=== PATIENT | female | born 1960 | race Caucasian/White ===

== ENCOUNTER → 2017-02-10 | Outpatient (CLI) | payer OTHER ==
--- NOTE | 2017-02-10 16:19 | MR ---
EXAMINATION TYPE: MR brain wo/w con DATE OF EXAM: 02/10/2017 4:05 PM COMPARISON: MRI brain April 28, 2016. HISTORY: Brain tumor and TIA per order. Patient having dizziness and forgetfulness symptoms. TECHNIQUE: Multiplanar, multisequence images of the brain and brainstem is performed without and with IV contras t, utilizing 15 mL intravenous MultiHance . FINDINGS: Diffusion weighted images demonstrate no evidence of a recent infarct or other diffusion ab normality. There is no worrisome extra-axial fluid collection. The ventricular system and cisternal spaces are normal in size and appearance. The brain volume is age appropriate. There is redemonstra tion a few scattered foci T2 hyperintensity seen throughout the white matter bilaterally. Approximate ly 5-10 small lesions all measuring 5 mm or smaller in size are redemonstrated. Lesions are nonspecif ic in appearance and distribution but most likely on basis of product of chronic small vessel ischemi c change. No significant change or progression from prior study is seen. Midline structures demonstrate normal morphology. The craniocervical junction appears within normal limits. Post contrast images demonstrate no abnormal enhancement. The dural venous sinuses appear pa tent. Mild mucosal thickening involving inferior maxillary sinuses is redemonstrated bilaterally othe rwise paranasal sinuses are grossly clear. The globes are intact bilaterally.. IMPRESSION: Stable mild chronic small vessel ischemic change. No significant change from prior study. No new enhancing intraparenchymal mass is noted to suggest intracranial neoplasm.
== END | disposition home or self-care (01) ==
LOC: RADMRIMAIN 15:12
PROVIDERS: ATTEND Psychiatry & Neurology Neurology
DX: C71.9 Malignant neoplasm of brain, unspecified (principal); I67.82 Cerebral ischemia
CPT/HCPCS: 70553; A9577

== ENCOUNTER → 2017-10-04 | Outpatient (CLI) | payer BC ==
--- NOTE | 2017-10-04 11:24 | BD ---
EXAMINATION TYPE: MG DEXA axial skeleton. DATE OF EXAM: 10/04/2017 COMPARISON: none CLINICAL HISTORY: menopausal Height: 5'4 1/2 Weight: FRAX RISK QUESTIONS: Alcohol (3 or more units per day): no Family History (Parent hip fracture): no Glucocorticoids (More than 3mos): no (Ex: prednisone, prednisolone, methylprednisolone, dexamethasone, and hydrocortisone). History of Fracture in Adulthood: yes Secondary Osteoporosis: 1. Type 1 Diabetes: no 2. Hyperthyroidism: no 3. Menopause before 45: no 4. Malnutrition: no 5. Chronic liver disease: no Rheumatoid Arthritis: no Current Tobacco Use: no RISK FACTORS HISTORY OF: Diet low in dairy products/other sources of calcium: Postmenopausal woman: MEDICATIONS: Thyroid Medications: Which medication: Levothyroxine How Lon years Additional Medications: Additional History: EXAM MEASUREMENTS: Bone mineral densitometry was performed using the [employer] System. Bone mineral density as measured about the Lumbar spine is: ----- L1-L4(G/cm2): 1.185 T Score Values are as follows: ----- L2: -0.2 ----- L3: 0.4 ----- L4: -0.1 ----- L1-L4: 0.0 Bone mineral density about the R hip (g/cm2): 0.983 Bone mineral density about the L hip (g/cm2): 0.933 T Score values are as follows: -----R Neck: -0.4 -----L Neck: -0.8 -----R Total: -0.3 -----L Total: -0.5 IMPRESSION: Normal (Values between +1 and -1 indicate normal bone mass). Consider repeating this study in 5 year s or sooner if there is some new clinical indication. NOTE: T-SCORE=SD OF THE YOUNG ADULT MEAN.
--- NOTE | 2017-10-06 10:47 | MM ---
Reason for exam: screening (asymptomatic). Last mammogram was performed 1 year and 7 months ago. History: Patient is postmenopausal. Benign right US cyst aspiration ea add of the right breast, June 28, 2005. Benign right US cyst aspiration of the right breast, June 28, 2005. Benign cyst aspiration of the left breast, October 18, 2000. Cyst aspiration of the left breast. Cyst aspiration of the right breast. Took hormonal contraceptives for 5 years beginning at age 18. Physical Findings: A clinical breast exam by your physician is recommended on an annual basis and results should be correlated with mammographic findings. MG Screening Mammo w CAD Bilateral CC and MLO view(s) were taken. Prior study comparison: February 23, 2016, bilateral MG screening mammo w CAD. November 15, 2013, bilateral digital screening mammo w/CAD. The breast tissue is heterogeneously dense. This may lower the sensitivity of mammography. No significant changes when compared with prior studies. ASSESSMENT: Negative, BI-RAD 1 RECOMMENDATION: Routine screening mammogram of both breasts in 1 year.
== END | disposition home or self-care (01) ==
LOC: RADMAMWWP 07:45
PROVIDERS: ATTEND Internal Medicine
DX: Z12.31 Encounter for screening mammogram for malignant neoplasm of breast (principal); Z78.0 Asymptomatic menopausal state
CPT/HCPCS: 77080; G0202

== ENCOUNTER 2017-10-05 07:38 | Day surgery (SDC) | payer BC, OTHER ==
[2017-10-04 09:08] VITALS: BMI 26.9
[~2017-10-05 07:38] MED LIST: LACTATED RINGERS 1,000 ML IV SCH; LIDOCAINE 1% 20 ML VIAL (10MG/ML) FOR IV START INTRADERMA PRN
[2017-10-05 08:23] VITALS: RESP 16; TEMP 97.5
[2017-10-05] MEDS ORDERED: LIDOCAINE 1% INJ 10MG/ML (20 ML MDV) ONE (09:24)
[2017-10-05] MEDS ORDERED: PROPOFOL 10 MG/ML 20 ML VIAL IV ONE (09:24)
--- NOTE | 2017-10-05 09:52 | P.PCN ---
Date of Procedure: 10/05/17 Procedure(s) Performed: Procedure: Colonoscopy and polypectomy. Preoperative diagnosis: Screening for neoplasia. Postoperative diagnosis: Distal sigmoid polyp snared but no large polyps or cancer. Preparation: HalfLytely prep. Sedation: Was provided by anesthesia. Brief clinical history: The patient is a 56-year-old female who is referred for this evaluation for screening for neoplasia age being her risk factor. She has no abdominal complaints, bleeding or anemia. No family history of colon cancer. This would be her first colonoscopy. Procedure: With the patient on her left lateral decubitus position and after informed consent and adequate sedation, the perianal area was inspected and it did not show any fissures or fistulas. There were no masses felt on digital rectal examination. The Olympus CFQ 160L video colonoscope was then inserted in the rectum in the usual fashion and advanced to the cecum. There was a 1.5 cm polyp in the distal sigmoid which was snared and retrieved by suction but there were no large polyps or cancer. The mucosa appeared healthy. There was no obvious diverticular disease or other pathology. I retroflexed the endoscope in the rectum before the endoscope was withdrawn. The patient tolerated the procedure well. Plan: The patient was reassured. Will await pathology results. I anticipate repeating this exam in 5 years. She will follow-up with you as planned.
[2017-10-05 10:18] VITALS: BP 127/67; PULSE 62
== END 2017-10-05 10:46 | disposition home or self-care (01) ==
LOC: ORWHC2ENDO 07:38
DX: D12.5 Benign neoplasm of sigmoid colon (principal); Z12.11 Encounter for screening for malignant neoplasm of colon; J45.909 Unspecified asthma, uncomplicated; E07.9 Disorder of thyroid, unspecified; Z85.41 Personal history of malignant neoplasm of cervix uteri; Z88.1 Allergy status to other antibiotic agents; Z79.899 Other long term (current) drug therapy; Z88.5 Allergy status to narcotic agent; Z88.0 Allergy status to penicillin
CPT/HCPCS: 88305; 45385; J2001; J2704

== ENCOUNTER → 2018-10-31 | Outpatient (CLI) | payer BC ==
--- NOTE | 2018-11-01 13:52 | MM ---
Reason for exam: screening (asymptomatic). Last mammogram was performed 1 year and 1 month ago. History: Patient is postmenopausal. Benign right US cyst aspiration ea add of the right breast, June 28, 2005. Benign right US cyst aspiration of the right breast, June 28, 2005. Benign cyst aspiration of the left breast, October 18, 2000. Cyst aspiration of the left breast. Cyst aspiration of the right breast. Took hormonal contraceptives for 5 years beginning at age 18. Physical Findings: A clinical breast exam by your physician is recommended on an annual basis and results should be correlated with mammographic findings. MG Screening Mammo w CAD Bilateral CC and MLO view(s) were taken. Prior study comparison: October 04, 2017, bilateral MG screening mammo w CAD. February 23, 2016, bilateral MG screening mammo w CAD. The breast tissue is heterogeneously dense. This may lower the sensitivity of mammography. Benign appearing bilateral calcifications. No suspicious abnormality. No significant changes when compared with prior studies. ASSESSMENT: Benign, BI-RAD 2 RECOMMENDATION: Routine screening mammogram of both breasts in 1 year.
== END ==
LOC: RADMAMWWP 08:32
PROVIDERS: ATTEND Internal Medicine
DX: Z12.31 Encounter for screening mammogram for malignant neoplasm of breast (principal)
CPT/HCPCS: 77067

== ENCOUNTER → 2020-01-29 | Outpatient (CLI) | payer BC ==
[2020-01-29 12:19] LABS: Basophils # (A) 0.1 k/uL (0-0.2); Basophils % (A) 1 %; Eosinophils # (A) 0.4 k/uL (0-0.7); Eosinophils % (A) 6 %; HCT 45.1 % (34.0-46.0); HGB 14.4 gm/dL (11.4-16.0); Lymphocytes # (A) 2.2 k/uL (1.0-4.8); Lymphocytes % (A) 34 %; MCH 28.9 pg (25.0-35.0); MCHC 31.9 g/dL (31.0-37.0); MCV 90.6 fL (80.0-100.0); Mean Platelet Volume 7.1; Monocytes # (A) 0.4 k/uL (0-1.0); Monocytes % (A) 6 %; Neutrophils # (A) 3.4 k/uL (1.3-7.7); Neutrophils % (A) 52 %; Platelet Count 280 k/uL (150-450); RBC 4.98 m/uL (3.80-5.40); RDW 12.8 % (11.5-15.5); WBC 6.6 k/uL (3.8-10.6)
[2020-01-29 16:12] LABS: Erythrocyte Sedimentation Rate 11 mm/hr (0-20)
== END | disposition home or self-care (01) ==
LOC: LABWHC1 10:15
PROVIDERS: ATTEND Orthopaedic Surgery
DX: T84.84XD Pain due to internal orthopedic prosthetic devices, implants and grafts, subsequent encounter (principal)
CPT/HCPCS: 36415; 85025; 85652; 86140

== ENCOUNTER 2020-03-16 16:18 | Emergency (ER) | payer BC ==
[2020-03-16] MEDS ORDERED: IPRATROPIUM-ALBUTEROL 3 ML NEB INHALATION STA (17:06)
--- NOTE | 2020-03-16 17:10 | ED ---
SOB HPI - General Chief Complaint: Shortness of Breath Stated Complaint: SOB Time Seen by Provider: 03/16/20 16:41 Source: patient, RN notes reviewed Mode of arrival: ambulatory Limitations: no limitations - History of Present Illness Initial Comments: This is a 59-year-old female history of asthma who presents with 3 days of complaints of chest congestion and shortness of breath exertional dyspnea cough is nonproductive sore throat no overt fever chills or sweats however. She believes is her asthma but her home medications are not helping. She was sent in by her doctor today. He does have some anterior chest discomfort it gets increase with deep breathing and movement and pressure. MD Complaint: shortness of breath - Related Data Home Medications Medication Instructions Recorded Confirmed Albuterol Inhaler (Bulk) [Ventolin 1 - 2 puff INHALATION RT-Q6H PRN 09/29/16 10/05/17 Hfa Inhaler] Levothyroxine Sodium [Synthroid] 50 mcg PO DAILY 09/29/16 10/04/17 Previous Rx's Medication Instructions Recorded Azithromycin [Zithromax Z-pack] 250 mg PO DIRECTED #6 tab 03/16/20 methylPREDNISolone Dose Pack 4 mg PO DIRECTED #21 package 03/16/20 [Medrol Dose Pack] Allergies Allergy/AdvReac Type Severity Reaction Status Date / Time codeine AdvReac Nausea & Verified 10/05/17 07:57 Vomiting Penicillins AdvReac Rash/Hives Verified 10/05/17 07:57 tetracycline [Tetracycline] AdvReac INDUCES Verified 10/05/17 07:57 ASTHMA ATTACK tramadol AdvReac sweats Verified 10/05/17 07:57 Review of Systems ROS Statement: Those systems with pertinent positive or pertinent negative responses have been documented in the HPI. ROS Other: All systems not noted in ROS Statement are negative. Past Medical History Past Medical History: Asthma, Cancer, Thyroid Disorder Additional Past Medical History / Comment(s): cancer of cervix History of Any Multi-Drug Resistant Organisms: None Reported Past Surgical History: Joint Replacement Additional Past Surgical History / Comment(s): 10/03/16 total L knee arthroplasty. Other surgical hx: RT TKA, COLONOSCOPY Past Anesthesia/Blood Transfusion Reactions: Previous Problems w/ Anesthesia, Motion Sickness Additional Past Anesthesia/Blood Transfusion Reaction / Comment(s): " SKINS FEELS LIKE IT IS CRAWLING WHEN COMING OUT OF ANESTHESIA" Past Psychological History: No Psychological Hx Reported Smoking Status: Never smoker - Past Family History Brother(s) Family Medical History: Cancer General Exam - General Exam Comments Initial Comments: This is a well-developed well-nourished awake alert oriented 3 female Limitations: no limitations General appearance: alert, in no apparent distress Head exam: Present: atraumatic, normocephalic, normal inspection Eye exam: Present: normal appearance, PERRL, EOMI. Absent: scleral icterus, conjunctival injection, periorbital swelling ENT exam: Present: normal exam, mucous membranes moist, other (No overt hyperemia at this time) Neck exam: Present: normal inspection, full ROM, other (No sided heavy or bruits). Absent: tenderness, meningismus, lymphadenopathy Respiratory exam: Present: normal lung sounds bilaterally, chest wall tenderness (Tennis palpation along the left costal sternal costochondral margin this does reproduce the patient's pain on palpation). Absent: respiratory distress, wheezes, rales, rhonchi, stridor Cardiovascular Exam: Present: regular rate, normal rhythm, normal heart sounds. Absent: systolic murmur, diastolic murmur, rubs, gallop, clicks GI/Abdominal exam: Present: soft, normal bowel sounds. Absent: distended, tenderness, guarding, rebound, rigid Extremities exam: Present: normal inspection, full ROM, normal capillary refill. Absent: tenderness, pedal edema, joint swelling, calf tenderness Back exam: Present: normal inspection Neurological exam: Present: alert, oriented X3, CN II-XII intact Psychiatric exam: Present: normal affect, normal mood Skin exam: Present: warm, dry, intact, normal color. Absent: rash Course Vital Signs 03/16/20 03/16/20 03/16/20 16:22 17:22 17:30 Temperature 97.9 F Pulse Rate 86 88 Respiratory 18 18 18 Rate Blood Pressure 157/87 143/84 O2 Sat by Pulse 98 98 Oximetry 03/16/20 03/16/20 18:00 18:30 Temperature Pulse Rate 74 79 Respiratory 18 18 Rate Blood Pressure 140/86 140/86 O2 Sat by Pulse 99 99 Oximetry - Reevaluation(s) Reevaluation #1: 03/16/20 19:15 Reevaluation patient reveals she is feeling better. Medical Decision Making - Medical Decision Making Patient has negative testing for the Covid virus. The patient presentation consistent with asthma exacerbation with bronchitis she'll be discharged we placed on a course of steroids as well as antibiotics she is able to tolerate Zithromax she has an inhaler this new. She'll follow-up with her doctor return when necessary she is in agreement with this. - Lab Data Result diagrams: 03/16/20 17:20 03/16/20 17:20 Lab Results 03/16/20 03/16/20 03/16/20 Range/Units 17:20 17:20 17:20 WBC 16.0 H (3.8-10.6) k/uL RBC 4.96 (3.80-5.40) m/uL Hgb 14.5 (11.4-16.0) gm/dL Hct 44.8 (34.0-46.0) % MCV 90.4 (80.0-100.0) fL MCH 29.1 (25.0-35.0) pg MCHC 32.2 (31.0-37.0) g/dL RDW 12.7 (11.5-15.5) % Plt Count 337 (150-450) k/uL Neutrophils % 76 % Lymphocytes % 17 % Monocytes % 4 % Eosinophils % 2 % Basophils % 0 % Neutrophils # 12.2 H (1.3-7.7) k/uL Lymphocytes # 2.7 (1.0-4.8) k/uL Monocytes # 0.6 (0-1.0) k/uL Eosinophils # 0.3 (0-0.7) k/uL Basophils # 0.1 (0-0.2) k/uL PT 9.7 (9.0-12.0) sec INR 0.9 (<1.2) APTT 23.8 (22.0-30.0) sec D-Dimer 0.62 H (<0.60) mg/L FEU Sodium (137-145) mmol/L Potassium (3.5-5.1) mmol/L Chloride (98-107) mmol/L Carbon Dioxide (22-30) mmol/L Anion Gap mmol/L BUN (7-17) mg/dL Creatinine (0.52-1.04) mg/dL Est GFR (CKD-EPI)AfAm (>60 ml/min/1.73 sqM) Est GFR (CKD-EPI)NonAf (>60 ml/min/1.73 sqM) Glucose (74-99) mg/dL Plasma Lactic Acid Sundar (0.7-2.0) mmol/L Calcium (8.4-10.2) mg/dL Magnesium (1.6-2.3) mg/dL Total Bilirubin (0.2-1.3) mg/dL AST (14-36) U/L ALT (4-34) U/L Alkaline Phosphatase (38-126) U/L Lactate Dehydrogenase (313-618) U/L Troponin I (0.000-0.034) ng/mL C-Reactive Protein (<10.0) mg/L NT-Pro-B Natriuret Pep 86 pg/mL Total Protein (6.3-8.2) g/dL Albumin (3.5-5.0) g/dL Coronavirus (PCR) (Not Detectd) Influenza Type A RNA (Not Detectd) Influenza Type B (PCR) (Not Detectd) 03/16/20 03/16/20 03/16/20 Range/Units 17:20 17:20 17:20 WBC (3.8-10.6) k/uL RBC (3.80-5.40) m/uL Hgb (11.4-16.0) gm/dL Hct (34.0-46.0) % MCV (80.0-100.0) fL MCH (25.0-35.0) pg MCHC (31.0-37.0) g/dL RDW (11.5-15.5) % Plt Count (150-450) k/uL Neutrophils % % Lymphocytes % % Monocytes % % Eosinophils % % Basophils % % Neutrophils # (1.3-7.7) k/uL Lymphocytes # (1.0-4.8) k/uL Monocytes # (0-1.0) k/uL Eosinophils # (0-0.7) k/uL Basophils # (0-0.2) k/uL PT (9.0-12.0) sec INR (<1.2) APTT (22.0-30.0) sec D-Dimer (<0.60) mg/L FEU Sodium 139 (137-145) mmol/L Potassium 4.1 (3.5-5.1) mmol/L Chloride 104 (98-107) mmol/L Carbon Dioxide 25 (22-30) mmol/L Anion Gap 10 mmol/L BUN 16 (7-17) mg/dL Creatinine 0.66 (0.52-1.04) mg/dL Est GFR (CKD-EPI)AfAm >90 (>60 ml/min/1.73 sqM) Est GFR (CKD-EPI)NonAf >90 (>60 ml/min/1.73 sqM) Glucose 90 (74-99) mg/dL Plasma Lactic Acid Sundar 0.8 (0.7-2.0) mmol/L Calcium 9.7 (8.4-10.2) mg/dL Magnesium 2.1 (1.6-2.3) mg/dL Total Bilirubin 0.4 (0.2-1.3) mg/dL AST 29 (14-36) U/L ALT 21 (4-34) U/L Alkaline Phosphatase 76 (38-126) U/L Lactate Dehydrogenase 471 (313-618) U/L Troponin I (0.000-0.034) ng/mL C-Reactive Protein 21.0 H (<10.0) mg/L NT-Pro-B Natriuret Pep pg/mL Total Protein 7.8 (6.3-8.2) g/dL Albumin 4.5 (3.5-5.0) g/dL Coronavirus (PCR) Not Detected (Not Detectd) Influenza Type A RNA Not Detected (Not Detectd) Influenza Type B (PCR) Not Detected (Not Detectd) 03/16/20 Range/Units 17:20 WBC (3.8-10.6) k/uL RBC (3.80-5.40) m/uL Hgb (11.4-16.0) gm/dL Hct (34.0-46.0) % MCV (80.0-100.0) fL MCH (25.0-35.0) pg MCHC (31.0-37.0) g/dL RDW (11.5-15.5) % Plt Count (150-450) k/uL Neutrophils % % Lymphocytes % % Monocytes % % Eosinophils % % Basophils % % Neutrophils # (1.3-7.7) k/uL Lymphocytes # (1.0-4.8) k/uL Monocytes # (0-1.0) k/uL Eosinophils # (0-0.7) k/uL Basophils # (0-0.2) k/uL PT (9.0-12.0) sec INR (<1.2) APTT (22.0-30.0) sec D-Dimer (<0.60) mg/L FEU Sodium (137-145) mmol/L Potassium (3.5-5.1) mmol/L Chloride (98-107) mmol/L Carbon Dioxide (22-30) mmol/L Anion Gap mmol/L BUN (7-17) mg/dL Creatinine (0.52-1.04) mg/dL Est GFR (CKD-EPI)AfAm (>60 ml/min/1.73 sqM) Est GFR (CKD-EPI)NonAf (>60 ml/min/1.73 sqM) Glucose (74-99) mg/dL Plasma Lactic Acid Sundar (0.7-2.0) mmol/L Calcium (8.4-10.2) mg/dL Magnesium (1.6-2.3) mg/dL Total Bilirubin (0.2-1.3) mg/dL AST (14-36) U/L ALT (4-34) U/L Alkaline Phosphatase (38-126) U/L Lactate Dehydrogenase (313-618) U/L Troponin I <0.012 (0.000-0.034) ng/mL C-Reactive Protein (<10.0) mg/L NT-Pro-B Natriuret Pep pg/mL Total Protein (6.3-8.2) g/dL Albumin (3.5-5.0) g/dL Coronavirus (PCR) (Not Detectd) Influenza Type A RNA (Not Detectd) Influenza Type B (PCR) (Not Detectd) - EKG Data -: EKG Interpreted by Me EKG shows normal: sinus rhythm EKG Comments: Normal sinus rhythm of 80. Interval 150 QRS duration 96 QT since QTC 392/[address]-T wave changes - Radiology Data Radiology results: report reviewed (I did review the imaging and report evidence of COPD no infiltrate seen.), image reviewed Disposition Clinical Impression: Asthma exacerbation, Bronchitis Disposition: HOME SELF-CARE Condition: Good Instructions (If sedation given, give patient instructions): Asthma (ED), Acute Bronchitis (ED) Additional Instructions: Prescriptions sent here for further pharmacy Prescriptions: methylPREDNISolone Dose Pack [Medrol Dose Pack] 4 mg PO DIRECTED #21 package Azithromycin [Zithromax Z-pack] 250 mg PO DIRECTED #6 tab Is patient prescribed a controlled substance at d/c from ED?: No Referrals: Jud Renteria MD [Primary Care Provider] - 1-2 days
[2020-03-16] MEDS ORDERED: ALBUTEROL HFA INHALER INHALATION STA (17:55)
[2020-03-16 18:04] LABS: Basophils # (A) 0.1 k/uL (0-0.2); Basophils % (A) 0 %; Eosinophils # (A) 0.3 k/uL (0-0.7); Eosinophils % (A) 2 %; HCT 44.8 % (34.0-46.0); HGB 14.5 gm/dL (11.4-16.0); Lymphocytes # (A) 2.7 k/uL (1.0-4.8); Lymphocytes % (A) 17 %; MCH 29.1 pg (25.0-35.0); MCHC 32.2 g/dL (31.0-37.0); MCV 90.4 fL (80.0-100.0); Mean Platelet Volume 6.8; Monocytes # (A) 0.6 k/uL (0-1.0); Monocytes % (A) 4 %; Neutrophils # (A) 12.2 k/uL (1.3-7.7); Neutrophils % (A) 76 %; Platelet Count 337 k/uL (150-450); RBC 4.96 m/uL (3.80-5.40); RDW 12.7 % (11.5-15.5)
--- NOTE | 2020-03-16 18:06 | XR ---
EXAMINATION TYPE: XR chest 1V portable DATE OF EXAM: 03/16/2020 Comparison: 08/25/2014 Clinical History: 59-year-old female increasing shortness of breath, cough Suspected COVID-19 pneumon ia Findings: Heart normal size. Aorta and pulmonary vasculature within normal limits. Mild hyperinflation mild int erstitial prominence. No consolidation or pleural effusion. Impression: Possible underlying COPD. Otherwise, no definite acute cardiopulmonary process.
[2020-03-16 18:10] LABS: ALT 21 U/L (4-34); AST 29 U/L (14-36); African American GFR (CKD) >90 (>60 ml/min/1.73 sqM); Albumin 4.5 g/dL (3.5-5.0); Alkaline Phosphatase 76 U/L (38-126); Anion Gap 10 mmol/L; Blood Urea Nitrogen 16 mg/dL (7-17); Calcium 9.7 mg/dL (8.4-10.2); Carbon Dioxide 25 mmol/L (22-30); Chloride 104 mmol/L (98-107); Glucose 90 mg/dL (74-99); LDH 471 U/L (313-618); Magnesium 2.1 mg/dL (1.6-2.3); Non-African American GFR(CKD) >90 (>60 ml/min/1.73 sqM); Potassium 4.1 mmol/L (3.5-5.1); Sodium 139 mmol/L (137-145); Total Bilirubin 0.4 mg/dL (0.2-1.3); Total Protein 7.8 g/dL (6.3-8.2)
[2020-03-16 18:19] LABS: INR 0.9 (<1.2); Partial Thromboplastin Time 23.8 sec (22.0-30.0); Prothrombin Time 9.7 sec (9.0-12.0)
[2020-03-16 18:21] LABS: D-Dimer 0.62 mg/L FEU (<0.60)
[2020-03-16] MEDS ORDERED: predniSONE 50 MG TAB PO STA (19:13)
[2020-03-16] MEDS ORDERED: AZITHROMYCIN 500 MG TAB PO STA (19:14)
[2020-03-16 19:42] VITALS: BP 128/89; PULSE 78; RESP 16; TEMP 97.8
[2020-03-16 23:56] LABS: Ferritin 162.9 ng/mL (10.0-291.0)
== END 2020-03-16 19:42 | disposition home or self-care (01) ==
LOC: EC 16:18
DX: J45.901 Unspecified asthma with (acute) exacerbation (principal); E07.9 Disorder of thyroid, unspecified; Z79.890 Hormone replacement therapy; Z88.0 Allergy status to penicillin; Z88.1 Allergy status to other antibiotic agents; Z88.5 Allergy status to narcotic agent; Z96.653 Presence of artificial knee joint, bilateral
CPT/HCPCS: 36415; 94640; 93005; 85379; 83880; 80053; 82728; 83605; 83615; 83735; 84484; 85025; 85610; 85730; 86140; 87040; 87502; 84145; 87635; 71045; 99285; J7512

== ENCOUNTER → 2020-05-01 | Outpatient (CLI) | payer BC ==
--- NOTE | 2020-05-01 12:50 | NM ---
"EXAMINATION TYPE: NM bone 3 phase DATE OF EXAM: 05/01/2020 COMPARISON: NONE HISTORY: Right knee pain for 5 months. Bilateral knee arthroplasties. Triple phase bone scintigraphy was performed following the injection of 22.2 mCi Tc 99m MDP. Immedia te images and 4 hours post injection images acquired. FINDINGS: There is slightly abnormal asymmetric flow to the right knee in comparison to the left with more focal uptake seen on blood pool images of the medial tibial plateau of the right knee and focal delayed hyperintense uptake at this location. Photopenic defects from bilateral knee arthroplasties. IMPRESSION: Positive 3 phase bone scan of the medial right tibial plateau that can be seen in septic or aseptic loosening. A Lyman level critical message alert has been initiated for Robson Fuentes MD via the [facility] 36 0 | Critical Results System on 05/01/2020 12:48 PM. This message alert has been sent to Robson Fuentes MD via the preferences provided by the clinician for the receipt of Radiology Critical Findings. [facility] ID [id number]."
== END | disposition home or self-care (01) ==
LOC: RADNMMAIN 07:19
PROVIDERS: ATTEND Orthopaedic Surgery
DX: M79.661 Pain in right lower leg (principal); R22.41 Localized swelling, mass and lump, right lower limb; Z88.1 Allergy status to other antibiotic agents; Z88.5 Allergy status to narcotic agent; Z88.6 Allergy status to analgesic agent
CPT/HCPCS: 78315; A9503

== ENCOUNTER → 2020-06-01 | Outpatient (CLI) | payer BC | END | disposition home or self-care (01) | LOC: LABPAT 11:01 | PROVIDERS: ATTEND Orthopaedic Surgery | DX: Z01.812 Encounter for preprocedural laboratory examination (principal) | CPT/HCPCS: 87070 ==

== ENCOUNTER 2020-06-16 09:48 | Inpatient (IN) | payer BC ==
[2020-06-12 14:03] VITALS: BMI 27.1
--- NOTE | 2020-06-15 08:59 | HP ---
HISTORY AND PHYSICAL CHIEF COMPLAINT: Right knee pain. HISTORY OF PRESENT ILLNESS: The patient is a 59-year-old [employer] employed who presents with right knee pain progressing over the past 6 months. She is having pain with weightbearing activities. She has been using a brace. She notes intermittent giving way. She has been taking Naprosyn without much relief. She underwent initial total knee arthroplasty in 2008. PAST MEDICAL HISTORY: Significant for osteoarthritis, hypothyroidism, asthma. PAST SURGICAL HISTORY: Significant for bilateral total knee arthroplasty. CURRENT MEDICATIONS: Levothyroxine, Naprosyn, and Zyrtec. ALLERGIES: She has allergies to PENICILLIN, TETRACYCLINES, CODEINE and TRAMADOL. FAMILY HISTORY: Family history is noncontributory. SOCIAL HISTORY: Negative for current tobacco or alcohol use. REVIEW OF SYSTEMS: Sixteen point review of systems otherwise reviewed and is noncontributory. PHYSICAL EXAMINATION: On examination, the patient is approximately 5 foot 5, 168 pounds of endomorphic habitus. HEENT exam is nonfocal. Neck is supple. She has painless passive motion of the right hip. Straight leg raise is negative. Active motion right knee -8 to 105 degrees of flexion. She is tender about the proximal and medial tibia. She has mild effusion. She has mild varus laxity. Her distal neurovascular exam appears intact in the right lower extremity. IMAGING: X-rays of the right knee obtained in the office show previous total knee arthroplasty with what appears to be some osteolysis about the proximal tibial screws. Bone scan report 05/01/2020 shows increased uptake all involving the medial tibial plateau. LABORATORY DATA: Previous laboratory studies showed sedimentation rate of 11 and CRP of 0.6. IMPRESSION: Painful right total knee arthroplasty with aseptic loosening. RECOMMENDATIONS: I talked to the patient at length regarding her condition and treatment options. At this point, she is quite limited because of pain despite conservative treatment. After thorough discussion, she opts to proceed with surgery. We will plan to proceed with revision right total knee arthroplasty. Risks and benefits were discussed at length in layman's terms. The patient underwent preoperative medical evaluation by Dr. Renteria. We will institute DVT prophylaxis postoperatively. MMODL / IJN: [id number] /
[~2020-06-16 09:48] MED LIST changes: +ACETAMINOPHEN TAB 500 MG TAB PO ONE; -LACTATED RINGERS 1,000 ML IV SCH; +LIDOCAINE 1% (10MG/ML) FOR IV START INTRADERMA PRN; -LIDOCAINE 1% 20 ML VIAL (10MG/ML) FOR IV START INTRADERMA PRN; +MELOXICAM 7.5 MG TAB PO ONE; +ONDANSETRON 4 MG/2 ML VIAL IVP ONE; +TRANEXAMIC ACID 1,000 MG in SODIUM CHLORIDE 0.9% 100 ML IVPB ONE
[2020-06-16] MEDS ORDERED: ACETAMINOPHEN TAB 500 MG TAB ONE (10:42)
[2020-06-16] MEDS ORDERED: ONDANSETRON 4 MG/2 ML VIAL ONE (10:43)
[2020-06-16] MEDS ORDERED: DEXAMETHASONE SOD PHOSPHATE 10 MG/ML 1 ML VIAL IV ONE (10:55)
[2020-06-16] MEDS: LACTATED RINGERS 1,000 ML IV SCH ×2 (11:17→21:42)
[2020-06-16] MEDS ORDERED: MIDAZOLAM 2 MG/2 ML VIAL IVP ONE (11:22)
[2020-06-16] MEDS ORDERED: ROPIVACAINE 0.2%-NS ON-Q PUMP 1,090 MG, EMPTY PAIN BALL 1 EACH MISCELLANE PRN (11:57)
--- NOTE | 2020-06-16 11:59 | P.ANPRN ---
Procedure Note - Anesthesia - Nerve Block Performed Right Adductor Canal Time Out Performed: Yes (11:22) Date of Procedure: 06/16/20 Procedure Start Time: :23 Procedure Stop Time: 11:38 Location of Patient: PreOp Indication: Acute Post-Operative Pain, Requested by Surgeon (Dr Fuentes) Sedation Type: Sedate with meaningful contact maintained Preparation: Sterile Prep, Sterile Dressing Position: Supine Catheter: Indwelling Needle Types: Pajunk Needle Gauge: 21 Ultrasound used to visualize needle placement: Yes Ultrasound used to observe medication spread: Yes Injectate: 0.5% Ropivacaine (see comment for volume) (20cc) Blood Aspirated: No Pain Paresthesia on Injection Noted: No Resistance on Injection: Normal Image Stored and Saved: Yes Events: Uneventful and Well Tolerated
[2020-06-16] MEDS ORDERED: ROPIVACAINE 246.25 MG, EPINEPHrine 0.5 MG, KETOROLAC 30 MG, cloNIDine HCL/PF 80 MCG, WA... MISCELLANE ONE ×5 (12:14)
[2020-06-16] MEDS ORDERED: PROPOFOL 10 MG/ML 20 ML VIAL IV ONE (12:50)
[2020-06-16] MEDS ORDERED: TRANEXAMIC ACID 1,000 MG/10 ML VIAL ONE (12:50)
[2020-06-16] MEDS ORDERED: SODIUM CHLORIDE 0.9% 100 ML BAG ONE (12:50)
[2020-06-16] MEDS ORDERED: MIDAZOLAM 2 MG/2 ML VIAL ONE (12:50)
[2020-06-16] MEDS ORDERED: HYDROmorphone (PF) 1 MG/ML ONE (12:50)
[2020-06-16] MEDS ORDERED: fentaNYL (PF) 50 MCG/ML 2 ML AMP ONE (12:50)
[2020-06-16] MEDS ORDERED: ceFAZolin 3,000 MG in SODIUM CHLORIDE 0.9% IRRIGATIO 3,000 ML IRRIGATION ONE (13:28)
[2020-06-16] MEDS ORDERED: LACTATED RINGERS 1,000 ML IV ONE (14:22)
[2020-06-16] MEDS ORDERED: HYDROmorphone 0.5 MG/0.5 ML SYRINGE IVP PRN (15:05)
[2020-06-16] MEDS ORDERED: NALOXONE 0.4 MG/ML 1 ML VIAL IV PRN (15:05)
[2020-06-16] MEDS ORDERED: MAGNESIUM HYDROXIDE 2,400 MG/10 ML CUP PO PRN (15:05)
[2020-06-16] MEDS: HYDROmorphone 0.5 MG/0.5 ML SYRINGE IVP PRN ×2 (15:27→16:05)
--- NOTE | 2020-06-16 15:34 | P.OP ---
Date of Procedure: 06/16/20 Preoperative Diagnosis: Aseptic loosening right total knee arthroplasty Postoperative Diagnosis: Same Procedure(s) Performed: Revision right total knee arthroplastyfemoral and tibial components along with articular surface Implants: Depuy TC3 size 2.5 femoral component, 2.5 tibial component, 12.5 mm articular surface, 4 mm posterior medial and lateral femoral augments. Anesthesia: spinal Surgeon: Robson Fuentes Solid Surface Fabricator #1: Arden Willams Estimated Blood Loss (ml): 100 Pathology: other (Synovial tissue/Gram stain) Condition: stable Disposition: PACU Indications for Procedure: The patient's a 59-year-old female who underwent right total knee arthroplasty approximately 12 years ago presents with progressive pain for the past year. Bone scan showed increased uptake involving the tibial component. This was consistent with loosening. A discussion of the risks and benefits of operative intervention versus continued conservative measures. Patient to proceed with surgery. Preoperative CRP and sed rate were normal. Specific risks of surgery to include infection, neurovascular injury, developed blood clots, possible fracture, possible component loosening and need for subsequent procedures was discussed. Informed consent was obtained. Operative Findings: as below Description of Procedure: The patient was brought to the operating room, and after induction of spinal anesthesia the right lower extremity was prepped and draped in normal fashion. The previous incision was utilized the anterior medial aspect of the right knee. Skin was incised sharply. Subcu tissues were divided sharply. Electrocautery was used for hemostasis. A medial parapatellar arthrotomy was performed. The medial soft tissues to include the superficial and deep portions of the medial collateral ligament were elevated subperiosteally. The patella was everted. The knee was then flexed. The articular surface was removed. Synovial tissue was sent for pathologic evaluation along with a stat Gram stain. These with both negative for acute or chronic inflammation/infection. A small sagittal saw was then utilized taking the bone cement interface on the femoral component. Flexible osteotomes were also utilized. The femoral component was then easily extracted without significant bone loss. Attention was then paid towards the tibial component. The 4 screws were removed. Again the small sagittal saw was utilized to break the bone cement interface. This was then extracted. There was some ostial lysis about the medial cement- screw interfaces. The previous cement and fibrous soft tissue were removed. 2 mm the proximal tibia was resected utilizing the alignment guide. The tibia sized most appropriately at 2.5. The appropriate guide was placed and the canal was reamed to placement of a 30 mm tibial stem. The trial component was placed. There was good fit and stability. Attention was then paid towards the distal femur. A cutting block was pinned in place. Anterior posterior and chamfer cuts were made. I planned on 4 mm posterior augment both medial and lateral. The box cut was then made with a reciprocating saw. The bone was removed in one fragment. The trial femoral and tibial components were placed along with a 12.5 mm articular surface. I was able to obtain full flexion and extension with good stability with varus/ valgus stress. The patella component was evaluated. This was felt to be stable and tracked well throughout the flexion/extension arc. The trial components were then removed. Bony surfaces were prepared with pulsatile lavage and dried. The posterior soft tissues were injected with ropivacaine. The tibial component was then cemented in place and was fully impacted. This femoral component was cemented place and fully impacted. Excess cement was removed. The trial 12.5 mm articular surface was placed and the knee was put in full extension. After the cement had sufficiently hardened the knee was again taken through range of motion and was felt to be stable in flexion and extension with varus and valgus stress. The trial articular surface was removed and the final one inserted. Pulsatile lavage was again utilized. The medial parapatellar arthrotomy was closed with #2 Ethibond suture. The tourniquet was deflated with approximately 90 minutes total tourniquet time. A second dose of IV TXA was given. The subcutaneous tissues were reapproximated interrupted 2-0 Vicryl sutures. Skin was repaired with 3-0 subcuticular strata fix suture. Skin tape and adhesive was applied. A sterile dressing was applied. The patient was awoken from sedation and transferred to the recovery room in good condition. Blood loss was estimated at 1 mL. No complications were incurred. Sponge and needle counts were correct in the case. Pablo NARANJO assisted during the major components of the case to include exposure, component extraction, component implantation, and closure.
--- NOTE | 2020-06-16 16:02 | XR ---
Right knee HISTORY: Status post right knee arthroplasty 2 views right knee Patient is status post right knee arthroplasty. There is anatomic alignment. Lucency is present in th e soft tissues. IMPRESSION: Orthopedic follow-up.
[2020-06-16] MEDS ORDERED: diphenhydrAMINE 50 MG/ML 1 ML VIAL IVP ONE (16:30)
--- NOTE | 2020-06-16 18:35 | P.CONS ---
History of Present Illness - Reason for Consult Consult date: 06/16/20 Medical management Requesting physician: Robson Fuentes - Chief Complaint Medical management - History of Present Illness 59-year-old female with PMH of asthma and hypothyroidism presents with an [facility] for elective surgery. She underwent revision right total knee arthroplasty. [facility] physicians is being consulted for medical management of this patient. Patient was seen and examined after her procedure. Patient reports well- controlled pain in her right knee. She is enjoying dinner. Her is at bedside. Patient has no complaints. She denies any headache, lower extremity edema, nausea or vomiting, fever chills, cough, chest pain, shortness of breath, palpitations, changes in urination or bowel habits. No changes in appetite or weight. She denies any dizziness, numbness/weakness testing of the extremities. Her vital signs are stable. Review of Systems Pertinent positives and negatives as discussed in HPI, a complete review of systems was performed and all other systems are negative. Past Medical History Past Medical History: Asthma, Cancer, Thyroid Disorder Additional Past Medical History / Comment(s): Hx Cervical Cancer 25 yrs ago. History of Any Multi-Drug Resistant Organisms: None Reported Past Surgical History: Joint Replacement Additional Past Surgical History / Comment(s): Bilateral total knee arthroplasty, Colonoscopy. Past Anesthesia/Blood Transfusion Reactions: Previous Problems w/ Anesthesia, Motion Sickness Additional Past Anesthesia/Blood Transfusion Reaction / Comm: " SKINS FEELS LIKE IT IS CRAWLING WHEN COMING OUT OF ANESTHESIA". Past Psychological History: No Psychological Hx Reported Smoking Status: Never smoker Past Alcohol Use History: Rare Past Drug Use History: None Reported - Past Family History Brother(s) Family Medical History: Cancer Additional Family Medical History / Comment(s): 2 brothers of Cancer. Medications and Allergies Home Medications Medication Instructions Recorded Confirmed Type Albuterol Inhaler (Mhu) [Ventolin 1 - 2 puff INHALATION RT-Q6H PRN 09/29/16 06/12/20 History Hfa Inhaler] Levothyroxine Sodium [Synthroid] 50 mcg PO QAM 09/29/16 06/12/20 History Cetirizine HCl [Zyrtec] 10 mg PO DAILY 06/12/20 06/12/20 History Allergies Allergy/AdvReac Type Severity Reaction Status Date / Time codeine AdvReac Nausea & Verified 06/16/20 10:34 Vomiting Penicillins AdvReac Rash/Hives Verified 06/16/20 10:34 tetracycline [Tetracycline] AdvReac INDUCES Verified 06/16/20 10:34 ASTHMA ATTACK tramadol AdvReac sweats Verified 06/16/20 10:34 Physical Exam Vitals: Vital Signs Temp Pulse Resp BP Pulse Ox 06/16/20 16:30 61 16 120/74 98 06/16/20 16:15 63 16 135/71 98 06/16/20 16:00 60 16 117/62 98 06/16/20 15:45 61 16 144/63 98 06/16/20 15:30 66 16 133/66 93 L 06/16/20 15:24 98.2 F 80 16 141/64 93 L 06/16/20 11:41 52 L 131/72 100 06/16/20 10:35 96.8 F L 70 16 163/77 98 Intake and Output 06/16/20 06/16/20 06/16/20 06:59 14:59 22:59 Intake Total 1751 300 Output Total 100 Balance 1651 300 Intake: IV 1751 300 Output: Estimated Blood Loss 100 Other: Weight 75.9 kg General: [non toxic], [no distress], [appears at stated age] Derm: [warm], [dry] Head: [atraumatic], [normocephalic], [symmetric] Eyes: [EOMI], [no lid lag], [anicteric sclera] Mouth: [no lip lesion], [mucus membranes moist] Cardiovascular: [S1S2 reg], [no murmur], [positive DP pulse bilateral], Lungs: [CTA bilateral], [no rhonchi, no rales] , [no accessory muscle use] Abdominal: [soft], [ nontender to palpation], [no guarding], [no appreciable organomegaly] Ext: [no gross muscle atrophy], [no edema], [no contractures], right knee wrapped Neuro: [ CN II-XI grossly intact], [no focal neuro deficits] Psych: [Alert], [oriented], [appropriate affect] Results Labs: Microbiology - Last 24 Hours (Table) 06/16/20 13:22 Gram Stain - Preliminary Knee - Right Assessment and Plan Assessment: Asthma Hypothyroidism Seasonal ALLERGIES Her asthma is stable. She'll be given albuterol neb as needed for shortness of breath and wheezing. Resume Synthroid. Resume Synthroid. Resume cetirizine. DVT prophylaxis: [Lovenox] Discussed with: [Patient and ] Anticipated discharge: [1-2 days] Anticipated discharge place: [Home] A total of [35] minutes was spent on the care of this complex patient more than 50% of the time was spent in counseling and care coordination. Patient names her Bernabe decision-maker if she can't make decisions for herself. Patient would like to be full code with no intubation. Thank you for this consult. Please call [facility] any questions or concerns.
[2020-06-16] MEDS: SENNOSIDES-DOCUSATE SODIUM 1 EACH TAB PO SCH (21:42)
[2020-06-17] MEDS: HYDROcodone/APAP 5-325MG 1 EACH TAB PO PRN ×4 (01:20→17:09)
--- NOTE | 2020-06-17 07:18 | CDI ---
Documentation Clarification Form Date: 06/17/2020 07:10:16 AM From: Goldie OrdazLittlejohnLYDIA, CCDS Admit Date: 06/16/2020 09:48:00 AM Patient Name: Mary Ramos Visit Number: [id number] Discharge Date: ATTENTION: The Clinical Documentation Specialists (CDI) and [facility] Coding Staff appreciate your assistance in clarifying documentation. Please respond to the clarification below the line at the bottom and electronically sign. The CDI & [facility] Coding staff will review the response and follow-up if needed. Please note: Queries are made part of the Legal Health Record. If you have any questions, please contact the author of this message via ITS. Dr. Ghassan Moore: Asthma is documented in the Medical Consult as stable, no further specificity. History/risk factors: Asthma, Hypothyroid, Seasonal allergies, Osteoarthritis. Clinical Indicators: Presented on 06/16 for an elective revision of a Right Total Knee Arthroplasty. Vital Signs 06/16: P 64, BP 106/72, PO 92 2Lnc. 06/17: P 50*, BP 90/52*, PO 96 RA Treatment: Home Synthroid resumed, O2 2Lnc POD #0. Albuterol Neb Tx prn for SOB & wheezing. In your professional opinion, can you please further specify the following, if known? Severity o Mild intermittent o Mild persistent o Moderate persistent o Other, please specify ____ o Unable to determine Form or Type o Cough variant o Exercise induced bronchospasm o Extrinsic allergic o Idiosyncratic o Intrinsic nonallergic o Late-onset o Mixed o Other, please specify____ o Unable to determine (Last Revision: February 2018) mild intermittent, FOrm: unable to determine MTDD
[2020-06-17 07:36] LABS: Basophils % (A) 0 %; Eosinophils % (A) 0 %; HCT 36.6 % (34.0-46.0); HGB 11.8 gm/dL (11.4-16.0); Lymphocytes # (A) 1.6 k/uL (1.0-4.8); Lymphocytes % (A) 12 %; MCH 30.2 pg (25.0-35.0); MCHC 32.3 g/dL (31.0-37.0); MCV 93.3 fL (80.0-100.0); Mean Platelet Volume 6.9; Monocytes # (A) 0.7 k/uL (0-1.0); Monocytes % (A) 5 %; Neutrophils # (A) 11.1 k/uL (1.3-7.7); Neutrophils % (A) 82 %; Platelet Count 233 k/uL (150-450); RBC 3.93 m/uL (3.80-5.40); RDW 12.5 % (11.5-15.5); WBC 13.5 k/uL (3.8-10.6)
[2020-06-17] MEDS: ENOXAPARIN 30 MG/0.3 ML SYRINGE SQ SCH ×2 (08:49→22:01)
--- NOTE | 2020-06-17 11:46 | P.PN ---
Progress Note - Text 06/17 649am 59-year-old female status post total knee replacement by Dr. Mata. Patient has an On-Q pump for postop pain control with the solution running at 8 mL an hour with a VAS of 0. Patient doing well than to continue On-Q pump infusion
--- NOTE | 2020-06-17 12:27 | P.PN ---
Subjective Progress Note Date: 06/17/20 (delayed charting seen at 1015) Principal diagnosis: Right knee pain Patient is a 59-year-old female with a history of mild intermittent asthma, hypothyroidism, and cancer who presented for elective right total knee revision. Patient seen and examined at bedside. She does have some right knee pain which she says is being controlled with medications. It is worse when ambulating and better with rest. She denies a chest pain, shortness breath, nausea, or vomiting. Objective - Vital Signs Vital signs: Vital Signs Temp 97.9 F 06/17/20 07:00 Pulse 50 L 06/17/20 07:00 Resp 18 06/17/20 07:00 BP 99/64 06/17/20 07:00 Pulse Ox 97 06/17/20 07:00 Intake & Output 06/16/20 06/17/20 06/17/20 18:59 06:59 18:59 Intake Total 2050 Output Total 100 500 Balance 1950 - Weight 75.9 kg 75.9 kg Intake: IV 2050 Output: Urine 500 Estimated Blood Loss 100 Other: Voiding Method Toilet # Voids 1 - Exam General: non toxic, no distress, appears at stated age Derm: warm, dry Head: atraumatic, normocephalic, symmetric Eyes: EOMI, no lid lag, anicteric sclera Mouth: no lip lesion, mucus membranes moist Cardiovascular: S1S2 reg, no murmur, positive posterior tibial pulse bilateral, Lungs: Decreased breath sounds bilateral without wheeze , no accessory muscle use Abdominal: soft, nontender to palpation, no guarding, no appreciable organomegaly Ext: no gross muscle atrophy, trace edema right knee, no contractures Neuro: CN II-XI grossly intact, no focal neuro deficits Psych: Alert, oriented, appropriate affect - Labs CBC & Chem 7: 06/17/20 07:04 Labs: Abnormal Lab Results - Last 24 Hours (Table) 06/17/20 Range/Units 07:04 WBC 13.5 H (3.8-10.6) k/uL Neutrophils # 11.1 H (1.3-7.7) k/uL Microbiology - Last 24 Hours (Table) 06/16/20 13:22 Gram Stain - Preliminary Knee - Right Wound Culture - Preliminary 06/16/20 13:22 Anaerobic Culture - Preliminary Knee - Right Assessment and Plan Assessment: 59-year-old female status post right total knee revision arthroplasty. Gram stain without any organisms present, culture pending Mild intermittent asthma without exacerbation -Continue with as needed albuterol Hypothyroidism -Resume Synthroid Seasonal ALLERGIES -Claritin DVT prophylaxis: Lovenox
--- NOTE | 2020-06-17 12:48 | P.PN ---
Subjective Progress Note Date: 06/17/20 Principal diagnosis: Status post revision right total knee arthroplasty Patient notes moderate right knee pain. She's been working with therapy today. Objective - Vital Signs Vital signs: Vital Signs Temp 97.9 F 06/17/20 07:00 Pulse 50 L 06/17/20 07:00 Resp 18 06/17/20 07:00 BP 99/64 06/17/20 07:00 Pulse Ox 97 06/17/20 07:00 Intake & Output 06/16/20 06/17/20 06/17/20 18:59 06:59 18:59 Intake Total 2050 Output Total 100 500 Balance 1950 - Weight 75.9 kg 75.9 kg Intake: IV 2050 Output: Urine 500 Estimated Blood Loss 100 Other: Voiding Method Toilet # Voids 1 - Exam Right knee dressing intact Homans negative right lower extremity Neurovascular exam intact right lower extremity - Labs CBC & Chem 7: 06/17/20 07:04 Labs: Abnormal Lab Results - Last 24 Hours (Table) 06/17/20 Range/Units 07:04 WBC 13.5 H (3.8-10.6) k/uL Neutrophils # 11.1 H (1.3-7.7) k/uL Microbiology - Last 24 Hours (Table) 06/16/20 13:22 Gram Stain - Preliminary Knee - Right Wound Culture - Preliminary 06/16/20 13:22 Anaerobic Culture - Preliminary Knee - Right Assessment and Plan Assessment: Status post right total knee revision arthroplasty Plan: Continue therapy. Continue analgesia. Continue DVT prophylaxis. Anticipate discharge tomorrow. Time with Patient: Less than 30
[2020-06-17] MEDS ORDERED: LORATADINE ORAL SOLN 120 MG/120 ML BOTTLE PO PRN (15:48)
[2020-06-17] MEDS: SENNOSIDES-DOCUSATE SODIUM 1 EACH TAB PO SCH (22:00)
[2020-06-18] MEDS: HYDROcodone/APAP 5-325MG 1 EACH TAB PO PRN ×2 (00:20→06:17)
[2020-06-18] MEDS: LACTATED RINGERS 1,000 ML IV SCH (06:15)
--- NOTE | 2020-06-18 07:06 | P.PN ---
Progress Note - Text Progress Note Date: 06/18/20 The patient is doing well status post total knee replacement. The patient had pain during the night and with ambulation however her Pain now is better controlled by a combination of local anesthetic infusion through the adductor canal catheter and oral analgesics. There are no signs of infection around the catheter skin entry site. The local anesthetic infusion will be continued as per protocol.
[2020-06-18] MEDS: ENOXAPARIN 30 MG/0.3 ML SYRINGE SQ SCH ×2 (07:43→22:11)
[2020-06-18] MEDS: ONDANSETRON 4 MG/2 ML VIAL IVP PRN ×2 (07:43→14:58)
--- NOTE | 2020-06-18 11:35 | P.PN ---
Subjective Progress Note Date: 06/18/20 Principal diagnosis: status post revision right total knee arthroplasty Patient evaluated at bedside today, she is resting comfortably. She's having increasing pain today. She's done very well physical therapy. She denies any chest pain or shortness of breath. Objective - Vital Signs Vital signs: Vital Signs Temp 98.8 F 06/18/20 07:00 Pulse 75 06/18/20 07:00 Resp 18 06/18/20 07:00 BP 118/77 06/18/20 07:00 Pulse Ox 96 06/18/20 07:00 Intake & Output 06/17/20 06/18/20 06/18/20 18:59 06:59 18:59 Other: Voiding Method Toilet # Voids 1 1 - Exam Right lower extremity: Incision is clean, dry, and intact. The exofin fusion tape is in good condition. There is minimal soft tissue swelling and ecchymosis surrounding the medial and lateral aspects of the incision. Calf is soft, no tenderness with palpation. Plantar flexion, dorsiflexion, EHL, FHL are intact. Sensory exam to light touch throughout the extremity is intact, dorsal pedis pulses 2+. - Labs CBC & Chem 7: 06/17/20 07:04 Labs: Microbiology - Last 24 Hours (Table) 06/16/20 13:22 Gram Stain - Preliminary Knee - Right Wound Culture - Preliminary Assessment and Plan Assessment: Status post revision right total knee arthroplasty Plan: Pain control, we'll increase [place] to 7.5 mg/325 mg for discharge GI and DVT prophylaxis, Eliquis 2.5mg bid for 14 days Icing and elevating techniques of scar/wound care instructions discussed Home physical therapy and nursing after discharge Medical recommendations Discharged to home today Time with Patient: Less than 30
--- NOTE | 2020-06-18 11:39 | P.DS ---
Providers Date of admission: 06/16/20 09:48 Expected date of discharge: 06/18/20 Attending physician: Robson Fuentes Consults: 06/16/20 15:05 Consult Physician Routine Consulting Provider: Jud Renteria Consult Reason/Comments: medical management Do you want consulting provider notified?: Yes Primary care physician: Jud Renteria Hospital Course: Date of admission: 06/16/2020 Date of discharge: 06/18/2020 Admission diagnosis: Status post revision right total knee arthroplasty Discharge diagnosis: Same Attending physician: Dr. Fuentes Surgical procedures: Revision right total knee arthroplasty Brief history: Patient is a 59-year-old female with a history of a previous right total knee arthroplasty that has become significantly painful. At this point patient has failed conservative treatment measures and has opted to proceed with a elective revision right total knee arthroplasty. Hospital course: Details of patient's surgery can be found in operative report. Patient tolerated the procedure well and was subsequently transported to orthopedic floor. Patient's orthopeidc and medical care was provided daily. Patient had daily laboratory tests performed for evaluation of overall blood counts. Patient had daily physical therapy to include strengthening range of motion as well as education with walker ambulation. Patient was treated with Lovenox for their postoperative DVT prophylaxis during their inpatient stay. Patient was noted to have a relatively uneventful postoperative course. Patient reported satisfactory pain control with oral pain medications by postoperative day 0. Patient showed satisfactory progress with physical therapy. Patient moved steadily through the program and had no difficulty meeting the goals by postoperative day 2. Given patient's otherwise satisfactory course and having met physical therapy goals, plan is to discharge patient home on postoperative day 2. Discharge condition/disposition: Patient will be discharged home in stable condition. Discharge medications: Instructions are given on resumption of patient's normal daily medications per primary care recommendation, in addition patient will be prescribed [place] 7.5 mg/325 mg, Colace 100 mg, Eliquis 2.5mg Discharge instructions: 1. Wound care and infection precautions, keep incision dry and covered while showering, no lotions, creams, moisturizers. No soaking, tubs, pools, hottubs. Do not scrub over the incision. 2. Weight-bear as tolerated with walker / cane until follow-up. 3. Ice and elevate when necessary. Do not exceed 20 minutes per hour with ice pack. 4. Utilize compression sleeve until seen at first follow up appointment. 5. Visiting nursing care. 6. Home physical therapy including home CPM. 7. Pain meds and anticoagulants per prescription. 8. Pain medication has potential to cause constipation. Increase oral fluid and fiber intake. Contact primary care provider if you have not had a bowel movement within 48 hours after discharge 9. No anti-inflammatory medication until discussed at first post operative visit, this including Motrin, Aleve, Mobic, Diclofenac. 10. Follow up in office at 2 weeks postop with Pablo Willams PA-C 11. Follow up with your primary care doctor 7-10 days after discharge. 12. Contact [facility] with any questions, . Procedures: revision right total knee arthroplasty Patient Condition at Discharge: Good Plan - Discharge Summary Discharge Rx Participant: Yes New Discharge Prescriptions: New Ondansetron Odt [Zofran Odt] 4 mg PO Q8HR PRN #21 tab PRN Reason: Nausea Docusate [Colace] 100 mg PO DAILY #30 capsule Apixaban [Eliquis] 2.5 mg PO BID #60 tab HYDROcodone/APAP 7.5-325MG [[place] 7.5] 1 - 2 each PO Q6HR PRN #56 tab PRN Reason: Pain Famotidine [Pepcid] 20 mg PO DAILY #30 tablet Continue Levothyroxine Sodium [Synthroid] 50 mcg PO QAM Albuterol Inhaler (Mhu) [Ventolin Hfa Inhaler (Mhu)] 1 - 2 puff INHALATION RT-Q6H PRN PRN Reason: ASTHMA Cetirizine HCl [Zyrtec] 10 mg PO DAILY Discharge Medication List Albuterol Inhaler (Mhu) [Ventolin Hfa Inhaler (Mhu)] 1 - 2 puff INHALATION RT- Q6H PRN 09/29/16 [History] Levothyroxine Sodium [Synthroid] 50 mcg PO QAM 09/29/16 [History] Cetirizine HCl [Zyrtec] 10 mg PO DAILY 06/12/20 [History] Apixaban [Eliquis] 2.5 mg PO BID #60 tab 06/18/20 [Rx] Docusate [Colace] 100 mg PO DAILY #30 capsule 06/18/20 [Rx] Famotidine [Pepcid] 20 mg PO DAILY #30 tablet 06/18/20 [Rx] HYDROcodone/APAP 7.5-325MG [[place] 7.5] 1 - 2 each PO Q6HR PRN #56 tab 06/18/20 [Rx] Ondansetron Odt [Zofran Odt] 4 mg PO Q8HR PRN #21 tab 06/18/20 [Rx] Follow up Appointment(s)/Referral(s): [facility], [NON-STAFF] - Arden Willams PAC [PHYSICIAN ROAD ROLLER OPERATOR] - 07/01/20 3:10 pm Jud Renteria MD [Primary Care Provider] - 06/23/20 10:15 am Activity/Diet/Wound Care/Special Instructions: Orthopedic Discharge Instructions: 1. Wound care and infection precautions, keep incision dry and covered while showering, no lotions, creams, moisturizers. No soaking, pools, hot tubs. Do not scrub over incision. 2. Weight-bear as tolerated with walker / cane until follow-up. 3. Ice and elevate when necessary. Do not exceed 20 minutes per hour with ice pack. 4. Utilize compression sleeve until seen at first follow up appointment. 5. Pain meds and anticoagulants per prescription. 6. Pain medication has potential to cause constipation. Increase oral fluid and fiber intake. Contact primary care provider if you have not had a bowel movement within 48 hours after discharge. 7. No anti-inflammatory medication until discussed at first post operative visit, this including Motrin, Aleve, Mobic, Diclofenac. 8. Follow up in office at 2 weeks postop with Pablo Willams PA-C 9. Follow up with your primary care doctor 7-10 days after discharge. 10. Contact [facility] with any questions, . Discharge Disposition: HOME WITH HOME HEALTH SERVICES
[2020-06-18] MEDS: IBUPROFEN 600 MG TAB PO PRN ×2 (14:59→22:10)
--- NOTE | 2020-06-18 15:18 | P.PN ---
Subjective Progress Note Date: 06/18/20 (delayed charting seen at 10am) Principal diagnosis: Right knee pain Patient is a 59-year-old female with a history of mild intermittent asthma, hypothyroidism, and cancer who presented for elective right total knee revision. Patient seen and examined at bedside. Pain controlled with norco but having nausea. She reports nausea with tramadol and codeine in the past as well. No chest pain no shortness of breath. Objective - Vital Signs Vital signs: Vital Signs Temp 99.3 F 06/18/20 14:54 Pulse 79 06/18/20 14:54 Resp 18 06/18/20 14:54 BP 146/80 06/18/20 14:54 Pulse Ox 98 06/18/20 14:54 Intake & Output 06/17/20 06/18/20 06/18/20 18:59 06:59 18:59 Other: Voiding Method Toilet # Voids 1 1 2 - Exam General: non toxic, no distress, appears at stated age Derm: warm, dry Head: atraumatic, normocephalic, symmetric Eyes: EOMI, no lid lag, anicteric sclera Mouth: no lip lesion, mucus membranes moist Cardiovascular: S1S2 reg, no murmur, positive posterior tibial pulse bilateral, Lungs: Decreased breath sounds bilateral without wheeze , no accessory muscle use Abdominal: soft, nontender to palpation, no guarding, no appreciable organomegaly Ext: no gross muscle atrophy, trace edema right knee, no contractures Neuro: CN II-XI grossly intact, no focal neuro deficits Psych: Alert, oriented, appropriate affect - Labs CBC & Chem 7: 06/17/20 07:04 Labs: Microbiology - Last 24 Hours (Table) 06/16/20 13:22 Gram Stain - Final Knee - Right Wound Culture - Final Assessment and Plan Assessment: Patient is a 59-year-old female status post right total knee revision arthroplasty. Gram stain without any organisms present, culture pending Nausea and vomiting associated with narcotic - Zofran, RX written for home Mild intermittent asthma without exacerbation -Continue with as needed albuterol Hypothyroidism -Resume Synthroid Seasonal ALLERGIES -Claritin DVT prophylaxis: Lovenox
[2020-06-18] MEDS ORDERED: TRIMETHOBENZAMIDE 100 MG/ML 2 ML VIAL IM STA (15:37)
[2020-06-18] MEDS: ACETAMINOPHEN TAB 325 MG TAB PO PRN (22:10)
[2020-06-18] MEDS: SENNOSIDES-DOCUSATE SODIUM 1 EACH TAB PO SCH (22:11)
[2020-06-19] MEDS: ACETAMINOPHEN TAB 325 MG TAB PO PRN ×2 (02:40→11:16)
[2020-06-19] MEDS: LACTATED RINGERS 1,000 ML IV SCH (06:10)
[2020-06-19 07:37] VITALS: BP 121/77; PULSE 67; TEMP 97.9
[2020-06-19] MEDS: IBUPROFEN 600 MG TAB PO PRN (08:03)
[2020-06-19] MEDS: ENOXAPARIN 30 MG/0.3 ML SYRINGE SQ SCH (08:55)
--- NOTE | 2020-06-19 09:24 | P.PN ---
Subjective Progress Note Date: 06/19/20 Principal diagnosis: status post revision right total knee arthroplasty Patient evaluated at bedside today, she is resting comfortably. She did stay last night, the nausea did not improve. [place] was discontinued, she is doing a lot better. Objective - Vital Signs Vital signs: Vital Signs Temp 97.9 F 06/19/20 07:36 Pulse 67 06/19/20 07:36 Resp 16 06/19/20 07:36 BP 121/77 06/19/20 07:36 Pulse Ox 96 06/19/20 07:36 Intake & Output 06/18/20 06/19/20 06/19/20 18:59 06:59 18:59 Intake Total 200 Output Total 200 Balance 0 Intake: Oral 200 Output: Urine 200 Other: Voiding Method Toilet # Voids 2 1 2 # Bowel Movements 1 - Exam Right lower extremity: Incision is clean, dry, and intact. The exofin fusion tape is in good condition. There is minimal soft tissue swelling and ecchymosis surrounding the medial and lateral aspects of the incision. Calf is soft, no tenderness with palpation. Plantar flexion, dorsiflexion, EHL, FHL are intact. Sensory exam to light touch throughout the extremity is intact, dorsal pedis pulses 2+. - Labs CBC & Chem 7: 06/17/20 07:04 Labs: Microbiology - Last 24 Hours (Table) 06/16/20 13:22 Anaerobic Culture - Preliminary Knee - Right 06/16/20 13:22 Gram Stain - Final Knee - Right Wound Culture - Final Assessment and Plan Assessment: Status post revision right total knee arthroplasty Plan: Pain control, motrin and tylenol at discharge GI and DVT prophylaxis, Eliquis 2.5mg bid for 14 days Icing and elevating techniques of scar/wound care instructions discussed Home physical therapy and nursing after discharge Medical recommendations Discharged to home today Time with Patient: Less than 30
[2020-06-19 14:49] VITALS: RESP 18
--- NOTE | 2020-06-19 14:54 | P.PN ---
Subjective Progress Note Date: 06/19/20 (delayed charting seen at 0910) Principal diagnosis: Right knee pain Patient is a 59-year-old female with a history of mild intermittent asthma, hypothyroidism, and cancer who presented for elective right total knee revision. Patient seen and examined at bedside. nausea resolved, pain controlled, no sob or chest pain Objective - Vital Signs Vital signs: Vital Signs Temp 97.9 F 06/19/20 07:36 Pulse 67 06/19/20 07:36 Resp 18 06/19/20 14:42 BP 121/77 06/19/20 07:36 Pulse Ox 96 06/19/20 07:36 Intake & Output 06/18/20 06/19/20 06/19/20 18:59 06:59 18:59 Intake Total 200 Output Total 200 Balance 0 Intake: Oral 200 Output: Urine 200 Other: Voiding Method Toilet Toilet # Voids 2 1 2 # Bowel Movements 1 - Exam General: non toxic, no distress, appears at stated age Derm: warm, dry Cardiovascular: S1S2 reg, no murmur, positive posterior tibial pulse bilateral, Lungs: Decreased breath sounds bilateral without wheeze , no accessory muscle use Ext: no gross muscle atrophy, trace edema right knee, no contractures Neuro: CN II-XI grossly intact, no focal neuro deficits Psych: Alert, oriented, appropriate affect - Labs CBC & Chem 7: 06/17/20 07:04 Labs: Microbiology - Last 24 Hours (Table) 06/16/20 13:22 Anaerobic Culture - Preliminary Knee - Right 06/16/20 13:22 Gram Stain - Final Knee - Right Wound Culture - Final Assessment and Plan Assessment: Patient is a 59-year-old female status post right total knee revision arthroplasty. Gram stain without any organisms present, culture negtaive Nausea and vomiting associated with narcotic - Zofran, RX written for home - Tigan X 1 Mild intermittent asthma without exacerbation -Continue with as needed albuterol Hypothyroidism -Resume Synthroid Seasonal ALLERGIES -Claritin DVT prophylaxis: Lovenox medically optimised for discharge
== END 2020-06-19 11:23 | disposition home health service (06) | DRG 468 ==
LOC: 2ORMAIN 09:48 → 4SSUR 16:37
PROVIDERS: ADMIT Orthopaedic Surgery; ATTEND Orthopaedic Surgery
PROC: 0SPC0JZ Removal of Synthetic Substitute from Right Knee Joint, Open Approach (ICD-10-PCS; principal; 2020-06-16 12:40)
PROC: 0SRC0J9 Replacement of Right Knee Joint with Synthetic Substitute, Cemented, Open Approach (ICD-10-PCS; principal; 2020-06-16 12:40)
DX: T84.032A Mechanical loosening of internal right knee prosthetic joint, initial encounter (principal); J45.20 Mild intermittent asthma, uncomplicated; E03.9 Hypothyroidism, unspecified; M19.90 Unspecified osteoarthritis, unspecified site; R11.2 Nausea with vomiting, unspecified; T40.605A Adverse effect of unspecified narcotics, initial encounter; Y83.1 Surgical operation with implant of artificial internal device as the cause of abnormal reaction of the patient, or of later complication, without mention of misadventure at the time of the procedure; Z79.890 Hormone replacement therapy; Z79.899 Other long term (current) drug therapy; Z85.41 Personal history of malignant neoplasm of cervix uteri; Z96.652 Presence of left artificial knee joint; Z88.1 Allergy status to other antibiotic agents; Z88.5 Allergy status to narcotic agent; Z88.0 Allergy status to penicillin; Z80.9 Family history of malignant neoplasm, unspecified
CPT/HCPCS: 64448; 76942; 85025; 87070; 87075; 87205

== ENCOUNTER → 2020-08-12 | Outpatient (CLI) | payer BC ==
--- NOTE | 2020-08-12 07:40 | US ---
EXAMINATION TYPE: US thyroid st tissue head/neck DATE OF EXAM: 08/12/2020 COMPARISON: 08/20/2014 CLINICAL HISTORY: Hypothyroidism E03.9. on meds, new onset of dizziness GLAND SIZE: Right Lobe: 4.4 x 1.2 x 1.5 cm Overall Parenchyma: homogenous Left Lobe: 3.2 x 0.9 x 0.7 cm Overall Parenchyma: homogeneous Isthmus Thickness: 0.1 cm NODULES RIGHT: # of nodules measured on right: 0 LEFT: # of nodules measured on left: 0 ISTHMUS: # of nodules measured in the isthmus: 0 Bilateral neck scanned, no evidence of lymphadenopathy. IMPRESSION: 1. Normal thyroid scan
== END | disposition home or self-care (01) ==
LOC: RADUSWWP 06:53
PROVIDERS: ATTEND Family Medicine
DX: E03.9 Hypothyroidism, unspecified (principal)
CPT/HCPCS: 76536

== ENCOUNTER → 2021-07-22 | Outpatient (CLI) | payer BC ==
--- NOTE | 2021-07-26 11:36 | MM ---
Reason for exam: screening (asymptomatic). Last mammogram was performed 1 year and 7 months ago. History: Patient is postmenopausal. Benign right US cyst aspiration ea add of the right breast, June 28, 2005. Benign right US cyst aspiration of the right breast, June 28, 2005. Benign cyst aspiration of the left breast, October 18, 2000. Cyst aspiration of the left breast. Cyst aspiration of the right breast. Took hormonal contraceptives for 5 years beginning at age 18. Physical Findings: A clinical breast exam by your physician is recommended on an annual basis and results should be correlated with mammographic findings. MG Screening Mammo w CAD Bilateral CC and MLO view(s) were taken. Prior study comparison: January 06, 2020, bilateral MG screening mammo w CAD. October 31, 2018, bilateral MG screening mammo w CAD. October 04, 2017, bilateral MG screening mammo w CAD. The breast tissue is heterogeneously dense. This may lower the sensitivity of mammography. There is chronic nodularity in the right breast. Medial left CC asymmetric density is more defined. Further evaluation recommended. ASSESSMENT: Incomplete: need additional imaging evaluation, BI-RAD 0 RECOMMENDATION: Special view mammogram of the left breast. (3D) If lesion persists on supplemental views, image directed ultrasound is recommended. [facility] will attempt to contact patient to return for supplemental views and ultrasound if indicated.
== END | disposition home or self-care (01) ==
LOC: RADMAMWWP 08:47
PROVIDERS: ATTEND Family Medicine
DX: Z12.31 Encounter for screening mammogram for malignant neoplasm of breast (principal); Z78.0 Asymptomatic menopausal state; Z79.3 Long term (current) use of hormonal contraceptives
CPT/HCPCS: 77067

== ENCOUNTER → 2021-08-06 | Outpatient (CLI) | payer SELFPAY ==
--- NOTE | 2021-08-06 12:19 | MM ---
Reason for exam: additional evaluation requested from abnormal screening. Last mammogram was performed less than 1 month ago. History: Patient is postmenopausal. Benign right US cyst aspiration ea add of the right breast, June 28, 2005. Benign right US cyst aspiration of the right breast, June 28, 2005. Benign cyst aspiration of the left breast, October 18, 2000. Cyst aspiration of the left breast. Cyst aspiration of the right breast. Took hormonal contraceptives for 5 years beginning at age 18. Physical Findings: Nurse did not find any significant physical abnormalities on exam. MG Work Up Mamm w CAD LT Spot compression CC, LM, and CCRM view(s) were taken of the left breast. Prior study comparison: July 22, 2021, bilateral MG screening mammo w CAD. January 06, 2020, bilateral MG screening mammo w CAD. The breast tissue is heterogeneously dense. This may lower the sensitivity of mammography. There is no discrete abnormality including area of concern. No significant new findings when compared with previous films. These results were verbally communicated with the patient and result sheet given to the patient on 08/06/21. ASSESSMENT: Benign, BI-RAD 2 RECOMMENDATION: Return to routine screening mammogram schedule for both breasts.
== END | disposition home or self-care (01) ==
LOC: RADMAMWWP 08:55
PROVIDERS: ATTEND Family Medicine
DX: N60.01 Solitary cyst of right breast (principal)
CPT/HCPCS: 77065

== ENCOUNTER → 2022-02-22 | Outpatient (CLI) | payer OTHER ==
[2022-02-22 14:23] LABS: Basophils # (A) 0.06 X 10*3/uL (0.00-0.10); Basophils % (A) 1.1 %; Eosinophils # (A) 0.24 X 10*3/uL (0.04-0.35); Eosinophils % (A) 4.4 %; HCT 45.2 % (37.2-46.3); Immature Grans, Automated 0.2 %; Lymphocytes # (A) 1.74 X 10*3/uL (0.90-5.00); Lymphocytes % (A) 31.8 %; MCH 28.7 pg (27.0-32.0); MCV 92.6 fL (80.0-97.0); Mean Platelet Volume 9.5 fL (9.5-12.2); Monocytes % (A) 7.3 %; NRBC Per 100 WBC 0 /100 WBCS (0.0-0.0); Neutrophils # (A) 3.03 X 10*3/uL (1.80-7.70); Neutrophils % (A) 55.2 %; Platelet Count 289 X 10*3/uL (140-440); RBC 4.88 X 10*6/uL (4.10-5.20); RDW 13.2 % (11.5-14.5); WBC 5.48 X 10*3/uL (4.50-10.00)
[2022-02-22 15:30] LABS: ALT 17 U/L (8-44); AST 17 U/L (13-35); African American GFR (CKD) 106.9 (60.0-200.0); Albumin 4.3 g/dL (3.8-4.9); Albumin/Globulin Ratio 1.54 (1.60-3.17); Alkaline Phosphatase 71 U/L (41-126); BUN/Creat Ratio 20.57 Ratio (12.00-20.00); Blood Urea Nitrogen 14.4 mg/dL (9.0-27.0); Calcium 9.3 mg/dL (8.7-10.3); Carbon Dioxide 24.2 mmol/L (20.0-27.5); Chloride 107 mmol/L (96-109); Chol/HDL Ratio 3.19 Ratio; Globulin 2.8 g/dL (1.6-3.3); Glucose 95 mg/dL (70-110); LDL Cholesterol,Calculated 145.4 mg/dL (0.0-131.0); Non-African American GFR(CKD) 92.2 (60.0-200.0); Potassium 4.3 mmol/L (3.5-5.5); Sodium 142 mmol/L (135-145); Total Protein 7.1 g/dL (6.2-8.2); VLDL Calculation 17.94 mg/dL (5.00-40.00)
== END | disposition home or self-care (01) ==
LOC: LABWHC1 08:21
PROVIDERS: ATTEND Internal Medicine
DX: E03.9 Hypothyroidism, unspecified (principal)
CPT/HCPCS: 36415; 80053; 80061; 82306; 84439; 84443; 85025

== ENCOUNTER → 2022-06-13 | Outpatient (CLI) | payer OTHER ==
[2022-06-13 18:43] LABS: Basophils # (A) 0.11 X 10*3/uL (0.00-0.10); Basophils % (A) 1.9 %; Eosinophils # (A) 0.15 X 10*3/uL (0.04-0.35); Eosinophils % (A) 2.6 %; HCT 42.4 % (37.2-46.3); HGB 13.3 g/dL (12.0-15.0); Immature Grans, Automated 0.2 %; Lymphocytes # (A) 1.77 X 10*3/uL (0.90-5.00); Lymphocytes % (A) 31.1 %; MCHC 31.4 g/dL (32.0-37.0); MCV 92.6 fL (80.0-97.0); Mean Platelet Volume 9.4 fL (9.5-12.2); Monocytes # (A) 0.44 X 10*3/uL (0.20-1.00); Monocytes % (A) 7.7 %; NRBC Per 100 WBC 0 /100 WBCS (0.0-0.0); Neutrophils # (A) 3.21 X 10*3/uL (1.80-7.70); Neutrophils % (A) 56.5 %; Platelet Count 272 X 10*3/uL (140-440); RBC 4.58 X 10*6/uL (4.10-5.20); RDW 13.3 % (11.5-14.5); WBC 5.69 X 10*3/uL (4.50-10.00)
[2022-06-13 19:53] LABS: Erythrocyte Sedimentation Rate 5 mm/Hr (0-30)
== END | disposition home or self-care (01) ==
LOC: LABWHC1 11:07
PROVIDERS: ATTEND Internal Medicine
DX: M25.569 Pain in unspecified knee (principal)
CPT/HCPCS: 36415; 85025; 85652; 86140

== ENCOUNTER → 2022-07-06 | Outpatient (CLI) | payer OTHER ==
--- NOTE | 2022-07-06 17:11 | NM ---
EXAMINATION TYPE: NM bone 3 phase DATE OF EXAM: 07/06/2022 COMPARISON: 3 phase nuclear medicine bone scan 05/01/2020. HISTORY: T84.032A Triple phase bone scintigraphy was performed following the injection of 22.8 mCi Tc 99m MDP. Immedia te images and 4 hours post injection images acquired. FINDINGS: There is redemonstration of abnormal increased asymmetric flow to the right knee in comparison to the left with more focal uptake seen on the blood pool images of the medial tibial plateau along the pro sthesis and in the distal femur along the medial femoral condyle. This is increased from prior exam. There is focal delayed hypertense uptake in these location. Photopenic defects from bilateral knee ar throplasties. Similar uptake demonstrated in the left knee from prior exam. IMPRESSION: Positive 3 phase bone scan of the right knee most prominently involving the medial femoral condyle an d tibial plateau extending along the hardware. This is progressed from prior examination. Etiologies include septic versus aseptic loosening.
== END | disposition home or self-care (01) ==
LOC: RADNMMAIN 07:02
PROVIDERS: ATTEND Orthopaedic Surgery
DX: T84.032A Mechanical loosening of internal right knee prosthetic joint, initial encounter (principal)
CPT/HCPCS: 78315; A9503

== ENCOUNTER → 2022-09-16 | Outpatient (CLI) | payer OTHER ==
--- NOTE | 2022-09-19 07:39 | BD ---
EXAMINATION TYPE: Axial Bone Density DATE OF EXAM: 09/16/2022 COMPARISON: NONE CLINICAL HISTORY: 61 years year old Female. ICD-10 CODE: Z78.0 menopausal Height: 64 Weight: 167.7 FRAX RISK QUESTIONS: Alcohol (3 or more units per day): NO Family History (Parent hip fracture): NO Glucocorticoids (More than 3mos): History of Fracture in Adulthood: ANKLE 20 YEARS AGO Secondary Osteoporosis: 1. Type 1 Diabetes: NO 2. Hyperthyroidism: NO 3. Menopause before 45: NO 4. Malnutrition: NO 5. Chronic liver disease: NO Rheumatoid Arthritis: NO Current Tobacco Use: NO RISK FACTORS HISTORY OF: Hip Fracture (Right/Left): NO Spine Fracture: NO History of Wrist Fracture: NO Surgery to Spine/Hip(right/left)/Wrist (right/left): NO Family History of Osteoporosis: NO Active: YES Diet low in dairy products/other sources of calcium: YES Postmenopausal woman: NO Take estrogen and/or progesterone medications: NO Lost more than 2 inches in height since high school: NO Frequent falls: NO Poor Health: NO Hyperparathyroidism: NO Adrenal Insufficiency: NO MEDICATIONS: Prednisone or other steroids: NO Thyroid Medications: SYNTHROID How Long: PAST 5 YEARS Osteoporosis Medications: NO Additional Medications: CALCIUM, VIT D, MULTI VIT, INHALER FOR ASTHMA, EXAM MEASUREMENTS: Bone mineral densitometry was performed using the [employer] System. Bone mineral density as measured about the Lumbar spine is: ----- L1-L4(G/cm2): 1.065 T Score Values are as follows: ----- L1: -1.2 ----- L2: -1.1 ----- L3: -0.8 ----- L4: -1.0 ----- L1-L4: -1.0 Bone mineral density has: DECREASED -9.7 % since study of: 10/04/2017 Bone mineral density about the R hip (g/cm2): 0.878 Bone mineral density about the L hip (g/cm2): 0.875 T Score values are as follows: -----R Neck: -1.2 -----L Neck: -1.2 -----R Total: -1.1 -----L Total: -0.7 Bone mineral density has: DECREASED -6.3 % since study of: 10/04/2017 FRAX%s: The graph provided illustrates a 13.2% chance for a major osteoporotic fx and a 1.0% chance f or the hips probability for fx in 10 years time. IMPRESSION: Osteopenia (T Score between -2.5 and -1). There is slightly increased risk of fracture and the patient may be considered for treatment. Re-Screen 2-5 years. NOTE: T-SCORE=SD OF THE YOUNG ADULT MEAN.
--- NOTE | 2022-09-19 08:24 | MM ---
Reason for Exam: Screening (asymptomatic). Last mammogram was performed 1 year(s) and 2 month(s) ago. Patient History: Menarche at age 14. First Full-Term at age 19. Postmenopausal. Patient has history of breast feeding. Hormonal Contraceptives for 5 years from age 18 until age 23. Cyst Aspiration on the Right side. Cyst Aspiration on the Left side. 06/28/2005, Benign Cyst Aspiration on the right side. 06/28/2005, Benign Cyst Aspiration on the right side. 10/18/2000, Benign Cyst Aspiration on the left side. Risk Values: Marium 5 year model risk: 1.3%. NCI Lifetime model risk: 5.5%. Prior Study Comparison: 01/06/2020 Bilateral Screening Mammogram, [facility]. 07/22/2021 Bilateral Screening Mammogram, [facility]. 08/06/2021 Left Diagnostic Mammogram, [facility]. Tissue Density: The breast tissue is heterogeneously dense. This may lower the sensitivity of mammography. Findings: Analyzed By CAD. Increased asymmetric density upper outer left breast zone B/C. Additional views are recommended. Chronic nodularity seen bilaterally. Benign calcifications are stable without suspicious cluster. Overall Assessment: Incomplete: need additional imaging evaluation, BI-RAD 0 Management: Diagnostic Mammogram of the left breast. A clinical breast exam by your physician is recommended on an annual basis and results should be correlated with mammographic findings. Electronically signed and approved by: Nasim Menon M.D. Radiologis
== END | disposition home or self-care (01) ==
LOC: RADBDWWP 13:01
PROVIDERS: ATTEND Internal Medicine
DX: Z12.31 Encounter for screening mammogram for malignant neoplasm of breast (principal); Z13.820 Encounter for screening for osteoporosis; M85.89 Other specified disorders of bone density and structure, multiple sites; Z78.0 Asymptomatic menopausal state
CPT/HCPCS: 77067; 77080

== ENCOUNTER → 2022-09-22 | Outpatient (CLI) | payer OTHER ==
--- NOTE | 2022-09-22 10:03 | MM ---
Reason for Exam: Additional evaluation requested from abnormal screening. Last screening mammogram was performed less than 1 month ago. Patient History: Menarche at age 14. First Full-Term at age 19. Postmenopausal. Patient has history of breast feeding. Hormonal Contraceptives for 5 years from age 18 until age 23. Cyst Aspiration on the Right side. Cyst Aspiration on the Left side. 06/28/2005, Benign Cyst Aspiration on the right side. 06/28/2005, Benign Cyst Aspiration on the right side. 10/18/2000, Benign Cyst Aspiration on the left side. Risk Values: Marium 5 year model risk: 1.3%. NCI Lifetime model risk: 5.5%. Prior Study Comparison: 07/22/2021 Bilateral Screening Mammogram, [facility]. 08/06/2021 Left Diagnostic Mammogram, [facility]. 09/16/2022 Bilateral MG screening mammo w CAD, [facility]. Tissue Density: Left: The breast tissue is heterogeneously dense. This may lower the sensitivity of mammography. Findings: Analyzed By CAD. No persisting abnormality in the upper-outer quadrant left breast on additional spot 3-D views. Areas of asymmetric density appears similar to various prior exams. Precautionary 6 month follow-up recommended. Overall Assessment: Probably benign, BI-RAD 3 Management: Diagnostic Mammogram of the left breast in 6 months. As a precautionary measure. Patient should continue monthly self breast exams. These results should not preclude additional follow-up of suspicious palpable abnormalities. Results were given to the patient verbally at the time of exam. Electronically signed and approved by: Kai Sagastume M.D. Radiologist
== END | disposition home or self-care (01) ==
LOC: RADMAMWWP 09:31
PROVIDERS: ATTEND Internal Medicine
DX: R92.8 Other abnormal and inconclusive findings on diagnostic imaging of breast (principal); Z78.0 Asymptomatic menopausal state
CPT/HCPCS: 77061; 77065

== ENCOUNTER → 2023-02-27 | Outpatient (CLI) | payer OTHER ==
[2023-02-27 15:33] LABS: Basophils # (A) 0.09 X 10*3/uL (0.00-0.10); Basophils % (A) 1.4 %; Eosinophils # (A) 0.23 X 10*3/uL (0.04-0.35); Eosinophils % (A) 3.5 %; HCT 47.2 % (37.2-46.3); Immature Grans, Automated 0.3 %; Lymphocytes # (A) 1.92 X 10*3/uL (0.90-5.00); Lymphocytes % (A) 29.2 %; MCH 28.9 pg (27.0-32.0); MCHC 31.8 g/dL (32.0-37.0); MCV 90.9 fL (80.0-97.0); Mean Platelet Volume 9.6 fL (9.5-12.2); Monocytes # (A) 0.45 X 10*3/uL (0.20-1.00); Monocytes % (A) 6.8 %; NRBC Per 100 WBC 0 /100 WBCS (0.0-0.0); Neutrophils # (A) 3.87 X 10*3/uL (1.80-7.70); Neutrophils % (A) 58.8 %; Platelet Count 269 X 10*3/uL (140-440); RBC 5.19 X 10*6/uL (4.10-5.20); RDW 12.8 % (11.5-14.5); WBC 6.58 X 10*3/uL (4.50-10.00)
[2023-02-27 16:41] LABS: ALT 32 U/L (8-44); AST 28 U/L (13-35); Albumin 4.4 g/dL (3.8-4.9); Albumin/Globulin Ratio 1.49 (1.60-3.17); Alkaline Phosphatase 75 U/L (41-126); BUN/Creat Ratio 17.89 Ratio (12.00-20.00); Blood Urea Nitrogen 14.1 mg/dL (9.0-27.0); Calcium 9.5 mg/dL (8.7-10.3); Carbon Dioxide 25.8 mmol/L (20.0-27.5); Chloride 104 mmol/L (96-109); Chol/HDL Ratio 3.13 Ratio; Globulin 2.9 g/dL (1.6-3.3); Glucose 98 mg/dL (70-110); LDL Cholesterol,Calculated 153.9 mg/dL (0.0-131.0); Non-African American GFR(CKD) 79.4 (60.0-200.0); Potassium 4.6 mmol/L (3.5-5.5); Sodium 141 mmol/L (135-145); Total Protein 7.3 g/dL (6.2-8.2); VLDL Calculation 15.46 mg/dL (5.00-40.00)
== END | disposition home or self-care (01) ==
LOC: LABWHC1 09:07
PROVIDERS: ATTEND Internal Medicine
DX: Z11.59 Encounter for screening for other viral diseases (principal); E03.9 Hypothyroidism, unspecified; E55.9 Vitamin D deficiency, unspecified
CPT/HCPCS: 36415; 80053; 80061; 82306; 84439; 84443; 85025; 86803

== ENCOUNTER → 2023-03-06 | Outpatient (CLI) | payer OTHER ==
--- NOTE | 2023-03-06 10:15 | MM ---
Reason for Exam: Follow-up at short interval from prior study. Last screening mammogram was performed 6 month(s) ago. Patient History: Menarche at age 14. First Full-Term at age 19. Postmenopausal. Patient has history of breast feeding. Hormonal Contraceptives for 5 years from age 18 until age 23. Cyst Aspiration on the Right side. Cyst Aspiration on the Left side. 06/28/2005, Benign Cyst Aspiration on the right side. 06/28/2005, Benign Cyst Aspiration on the right side. 10/18/2000, Benign Cyst Aspiration on the left side. Risk Values: Marium 5 year model risk: 1.3%. NCI Lifetime model risk: 5.3%. Prior Study Comparison: 08/06/2021 Left Diagnostic Mammogram, [facility]. 09/16/2022 Bilateral MG screening mammo w CAD, [facility]. 09/22/2022 Left MG 3D work up w/cad , [facility]. Tissue Density: Left: The breast tissue is heterogeneously dense. This may lower the sensitivity of mammography. Findings: Analyzed By CAD. Stable benign calcifications. Chronic nodularity without a suspicious mass or distortion. Overall Assessment: Benign, BI-RAD 2 Management: Screening Mammogram of both breasts in 6 months. A clinical breast exam by your physician is recommended on an annual basis and results should be correlated with mammographic findings. This exam should not preclude additional follow-up of suspicious palpable abnormalities. Results were given to the patient verbally at the time of exam. Electronically signed and approved by: Nasim Menon M.D. Radiologis
== END | disposition home or self-care (01) ==
LOC: RADMAMWWP 09:55
PROVIDERS: ATTEND Internal Medicine
DX: R92.8 Other abnormal and inconclusive findings on diagnostic imaging of breast (principal); Z78.0 Asymptomatic menopausal state
CPT/HCPCS: 77065

== ENCOUNTER 2024-01-15 10:40 | Day surgery (SDC) | payer MEDICARE, OTHER ==
[2024-01-15] MEDS: LACTATED RINGERS 1,000 ML IV SCH (11:15)
[2024-01-15 11:45] VITALS: TEMP 97.4
[2024-01-15] MEDS ORDERED: LIDOCAINE 1% INJ 10MG/ML (20 ML MDV) ONE (12:43)
[2024-01-15] MEDS ORDERED: PROPOFOL 10 MG/ML 20 ML VIAL IV ONE (12:43)
--- NOTE | 2024-01-15 13:02 | P.OP ---
Date of Procedure: 01/15/24 Preoperative Diagnosis: Screening colonoscopy Postoperative Diagnosis: Mild diverticulosis Procedure(s) Performed: Colonoscopy Anesthesia: MAC Surgeon: Artem Tuttle Pathology: none sent Condition: stable Disposition: PACU Description of Procedure: The patient was placed on the endoscopy table in the lateral position. She received IV sedation. Digital rectal exam was performed. This revealed no abnormalities. Flexible colonoscope was then placed patient anus and passed throughout the entire colon. The ileocecal valve was visualized. The cecum, ascending and transverse colon appeared normal. In the descending and sigmoid colon there is mild diverticular changes. Scope was then re brought back in the rectum and this appeared normal. The scope was withdrawn from the patient.
--- NOTE | 2024-01-15 13:03 | P.GSHP ---
History of Present Illness H&P Date: 01/15/24 Chief Complaint: screening colonoscopy This is a 63-year-old female presents today for screening colonoscopy. Patient denies any significant GI complaints. Past Medical History Past Medical History: Asthma, Cancer, Osteoarthritis (OA), Thyroid Disorder Additional Past Medical History / Comment(s): cancer of cervix, hx. colon polyps History of Any Multi-Drug Resistant Organisms: None Reported Past Surgical History: Joint Replacement Additional Past Surgical History / Comment(s): 10/03/16 total L knee arthroplasty, RT TKA, COLONOSCOPY, cone biopsy Past Anesthesia/Blood Transfusion Reactions: Previous Problems w/ Anesthesia, Motion Sickness Additional Past Anesthesia/Blood Transfusion Reaction / Comment(s): " SKINS FEELS LIKE IT IS CRAWLING WHEN COMING OUT OF ANESTHESIA" Smoking Status: Never smoker - Past Family History Brother(s) Family Medical History: Cancer Additional Family Medical History / Comment(s): 2 brothers of Cancer. Medications and Allergies Home Medications Medication Instructions Recorded Confirmed Type Albuterol Inhaler [Ventolin Hfa 1 - 2 puff INHALATION RT-Q6H PRN 09/29/16 01/15/24 History Inhaler] Levothyroxine Sodium [Synthroid] 50 mcg PO QAM 09/29/16 01/15/24 History Cetirizine HCl [Zyrtec] 10 mg PO DAILY PRN 06/12/20 01/15/24 History Cholecalciferol (Vitamin D3) 50 mcg PO DAILY 01/11/24 01/15/24 History [Vitamin D3 (50 Mcg = 2000 Iu)] Multivit-Min/Iron/Folic/Lutein 1 each PO DAILY 01/11/24 01/15/24 History [Centrum Silver Women Tablet] Allergies Allergy/AdvReac Type Severity Reaction Status Date / Time codeine AdvReac Nausea & Verified 01/15/24 11:03 Vomiting Penicillins AdvReac Rash/Hives Verified 01/15/24 11:03 tetracycline [Tetracycline] AdvReac INDUCES Verified 01/15/24 11:03 ASTHMA ATTACK tramadol AdvReac sweats Verified 01/15/24 11:03 Surgical - Exam Vital Signs Temp Pulse Resp BP Pulse Ox 97.4 F L 74 14 153/72 96 01/15/24 11:07 01/15/24 11:07 01/15/24 11:07 01/15/24 11:07 01/15/24 11:07 - General well developed, well nourished, no distress - Eyes PERRL - ENT normal pinna - Neck no masses - Respiratory normal expansion - Cardiovascular Rhythm: regular - Abdomen Abdomen: soft, non tender Assessment and Plan Plan: Will perform screening colonoscopy.
[2024-01-15 13:15] VITALS: RESP 16
[2024-01-15 13:45] VITALS: BP 128/56; PULSE 64
== END 2024-01-15 13:36 | disposition home or self-care (01) ==
LOC: ORWHC2ENDO 10:40
PROVIDERS: ATTEND Surgery
DX: Z12.11 Encounter for screening for malignant neoplasm of colon (principal); K57.30 Diverticulosis of large intestine without perforation or abscess without bleeding; J45.909 Unspecified asthma, uncomplicated; M19.90 Unspecified osteoarthritis, unspecified site; E07.9 Disorder of thyroid, unspecified; Z86.010 Personal history of colon polyps; Z96.653 Presence of artificial knee joint, bilateral; Z80.9 Family history of malignant neoplasm, unspecified; Z79.51 Long term (current) use of inhaled steroids; Z79.890 Hormone replacement therapy; Z88.5 Allergy status to narcotic agent; Z88.0 Allergy status to penicillin; Z88.1 Allergy status to other antibiotic agents; Z85.41 Personal history of malignant neoplasm of cervix uteri
CPT/HCPCS: G0105; J2001; J2704; 45378

== ENCOUNTER → 2024-10-17 | Outpatient (CLI) | payer MEDICARE ==
--- NOTE | 2024-10-18 14:47 | MM ---
Reason for Exam: Screening (asymptomatic). Last mammogram was performed 1 year(s) and 1 month(s) ago. Patient History: Menarche at age 14. First Full-Term at age 19. Postmenopausal. Patient has history of breast feeding. Hormonal Contraceptives for 5 years from age 18 until age 23. Cyst Aspiration on the Right side. Cyst Aspiration on the Left side. 06/28/2005, Benign Cyst Aspiration on the right side. 06/28/2005, Benign Cyst Aspiration on the right side. 10/18/2000, Benign Cyst Aspiration on the left side. Risk Values: Marium 5 year model risk: 1.4%. NCI Lifetime model risk: 5.1%. Prior Study Comparison: 09/22/2022 Left MG 3D work up w/cad LT, [facility]. 03/06/2023 Left MG diagnostic mammo LT w CAD, [facility]. 09/15/2023 Bilateral MG foundation screening mammo, [facility]. Tissue Density: The breasts are heterogeneously dense, which may obscure small masses. Findings: Analyzed By CAD. Right breast: There is no suspicious group of microcalcifications or new suspicious mass. Left breast: Asymmetry left breast MLO view inferior aspect middle depth. Asymmetry left breast CC view middle depth most medial and laterally. Overall Assessment: Incomplete: need additional imaging evaluation, BI-RAD 0 Management: Diagnostic Mammogram of the left breast. [facility] will attempt to contact patient to return for supplemental views and ultrasound if indicated. Patient should continue monthly self-breast exams. A clinical breast exam by your physician is recommended on an annual basis. This exam should not preclude additional follow-up of suspicious palpable abnormalities. Note on Marium scores and lifetime risk: 1. A Marium score greater than 3% is considered moderate risk. If this is the case, consider specialist referral to assess eligibility for a risk reducing agent. 2. If overall lifetime risk for the development of breast cancer is 20% or higher, the patient may qualify for future screening with alternating mammogram and breast MRI. [facility], , 10/18/2024 2:44 PM. Electronically signed and approved by: Rashad Ramesh DO
== END | disposition home or self-care (01) ==
LOC: RADMAMWWP 12:20
PROVIDERS: ATTEND Internal Medicine
DX: Z12.31 Encounter for screening mammogram for malignant neoplasm of breast (principal); R92.333 Mammographic heterogeneous density, bilateral breasts; Z78.0 Asymptomatic menopausal state
CPT/HCPCS: 77067

== ENCOUNTER → 2024-10-31 | Outpatient (CLI) | payer MEDICARE ==
--- NOTE | 2024-10-31 15:00 | MM ---
Reason for Exam: Clinical finding. Last screening mammogram was performed less than 1 month ago. Patient History: Menarche at age 14. First Full-Term at age 19. Postmenopausal. Patient has history of breast feeding. Hormonal Contraceptives for 5 years from age 18 until age 23. Cyst Aspiration on the Right side. Cyst Aspiration on the Left side. 06/28/2005, Benign Cyst Aspiration on the right side. 06/28/2005, Benign Cyst Aspiration on the right side. 10/18/2000, Benign Cyst Aspiration on the left side. Risk Values: Marium 5 year model risk: 1.4%. NCI Lifetime model risk: 5.1%. Prior Study Comparison: 03/06/2023 Left MG diagnostic mammo LT w CAD, [facility]. 09/15/2023 Bilateral MG foundation screening mammo, [facility]. 10/17/2024 Bilateral MG screening mammo w CAD, [facility]. Tissue Density: Left: The breasts are heterogeneously dense, which may obscure small masses. Findings: Analyzed By CAD. Multiple areas of asymmetric density appears to disperse on additional spot compression views. Findings suggest superimposition shadow. Given the complex densities, precautionary six-month follow-up recommended. Overall Assessment: Probably benign, BI-RAD 3 Management: Diagnostic Mammogram of the left breast in 6 months. Results were given to the patient verbally at the time of exam. Patient should continue monthly self-breast exams. A clinical breast exam by your physician is recommended on an annual basis. This exam should not preclude additional follow-up of suspicious palpable abnormalities. Note on Marium scores and lifetime risk: 1. A Marium score greater than 3% is considered moderate risk. If this is the case, consider specialist referral to assess eligibility for a risk reducing agent. 2. If overall lifetime risk for the development of breast cancer is 20% or higher, the patient may qualify for future screening with alternating mammogram and breast MRI. [facility], , 10/31/2024 2:57 PM. Electronically signed and approved by: Kai Sagastume M.D. Radiologist
== END | disposition home or self-care (01) ==
LOC: RADMAMWWP 14:04
PROVIDERS: ATTEND Internal Medicine
DX: R92.8 Other abnormal and inconclusive findings on diagnostic imaging of breast (principal); R92.333 Mammographic heterogeneous density, bilateral breasts; Z78.0 Asymptomatic menopausal state
CPT/HCPCS: 77065; G0279; 77061

== ENCOUNTER → 2024-11-08 | Outpatient (CLI) | payer MEDICARE ==
--- NOTE | 2024-11-08 10:32 | XR ---
2 view chest HISTORY: Cough. COMPARISON: None TECHNIQUE: PA and lateral views chest obtained. FINDINGS: The lungs are clear of consolidative, interstitial or masslike opacity. There is no pleural effusion, pleural thickening or pneumothorax. The heart, pulmonary vasculature, mediastinum and suzi are within normal limits. The osseous structures and soft tissues of the thorax are intact. IMPRESSION: No significant abnormality. No acute cardiopulmonary disease. [facility], Workstation: JAEL 11/08/2024 10:29 AM
== END | disposition home or self-care (01) ==
LOC: RADXRMAIN 09:44
PROVIDERS: ATTEND Internal Medicine
DX: R05.8 Other specified cough (principal)
CPT/HCPCS: 71046

== ENCOUNTER → 2024-11-25 | Outpatient (CLI) | payer MEDICARE ==
[2024-11-25 15:41] LABS: Basophils % (A) 1.3 %; Eosinophils # (A) 0.26 X 10*3/uL (0.04-0.35); Eosinophils % (A) 3.4 %; HCT 46.9 % (37.2-46.3); HGB 14.8 g/dL (12.0-15.0); Lymphocytes # (A) 2.67 X 10*3/uL (0.90-5.00); Lymphocytes % (A) 34.7 %; MCH 28.6 pg (27.0-32.0); MCHC 31.6 g/dL (32.0-37.0); MCV 90.7 FL (80.0-97.0); Mean Platelet Volume 9.2 FL (9.5-12.2); Monocytes # (A) 0.53 X 10*3/uL (0.20-1.00); Monocytes % (A) 6.9 %; NRBC Per 100 WBC 0 X 10*3/uL (0.00-0.01); Neutrophils # (A) 4.11 X 10*3/uL (1.80-7.70); Neutrophils % (A) 53.4 %; Platelet Count 290 X 10*3/uL (140-440); RBC 5.17 X 10*6/uL (4.10-5.20); RDW 13.4 % (11.5-14.5); WBC 7.69 X 10*3/uL (4.50-10.00)
[2024-11-25 15:55] LABS: ALT 25 U/L (8-44); AST 21 U/L (13-35); Albumin 4.3 g/dL (3.8-4.9); Albumin/Globulin Ratio 1.59 Ratio (1.60-3.17); Alkaline Phosphatase 76 U/L (41-126); BUN/Creat Ratio 19.88 Ratio (12.00-20.00); Blood Urea Nitrogen 15.9 mg/dL (9.0-27.0); Calcium 9.6 mg/dL (8.7-10.3); Carbon Dioxide 26.1 mmol/L (21.6-31.8); Chloride 104 mmol/L (96-109); Chol/HDL Ratio 3.31 Ratio; Globulin 2.7 g/dL (1.6-3.3); Glucose 100 mg/dL (70-110); LDL Cholesterol,Calculated 171.6 mg/dL (0.0-131.0); Potassium 4.6 mmol/L (3.5-5.5); Sodium 141 mmol/L (135-145); T4, Free (Free Thyroxine) 0.89 ng/dL (0.80-1.80); Total Bilirubin 0.4 mg/dL (0.3-1.2)
== END | disposition home or self-care (01) ==
LOC: LABWHC1 09:17
PROVIDERS: ATTEND Internal Medicine
DX: E03.9 Hypothyroidism, unspecified (principal); E78.5 Hyperlipidemia, unspecified; E55.9 Vitamin D deficiency, unspecified
CPT/HCPCS: 36415; 80053; 80061; 82306; 83735; 84439; 84443; 85025

== ENCOUNTER → 2025-06-24 | Outpatient (CLI) | payer MEDICARE ==
--- NOTE | 2025-06-24 10:51 | XR ---
EXAMINATION TYPE: XR KUB DATE OF EXAM: 06/24/2025 COMPARISON: NONE CLINICAL INDICATION: Female, 64 years old with history of R10.9 R10.84 Abd Pain R19.7 Diarrhea; TECHNIQUE: XR KUB views of the abdomen. FINDINGS: The osseous structures are intact. The bowel gas pattern is nonspecific. Lung bases are clear. Dege nerative changes of the spine. Mild bilateral hip arthropathy. Calcifications in the pelvis are likel y vascular. Generalized demineralization. IMPRESSION: 1. Nonspecific abdomen. [facility], , 06/24/2025 10:49 AM
== END | disposition home or self-care (01) ==
LOC: RADXRMAIN 10:25
PROVIDERS: ATTEND Internal Medicine
DX: R10.9 Unspecified abdominal pain (principal); R10.84 Generalized abdominal pain; R19.7 Diarrhea, unspecified
CPT/HCPCS: 74018